=== PATIENT | female | born 1980 | race Caucasian/White ===

== ENCOUNTER 2022-07-19 12:14 | Emergency (ER) | payer OTHER, SELFPAY ==
[2022-07-19 12:39] VITALS: BP 144/88; RESP 22; TEMP 36.6; O2SAT 97; BMI 38.4
--- NOTE | 2022-07-19 13:09 | CRLHL7_ITS ---
For Patients: As a result of the Century Cures Act, medical imaging exams and procedure reports are released immediately into your electronic medical record. You may view this report before your referring provider. If you have questions, please contact your health care provider. INDICATION: Abdominal pain. Hernia. COMPARISON: None. TECHNIQUE: CT abdomen and pelvis with IV contrast. 99 cc IV [id number]. FINDINGS: Linear basilar subsegmental atelectasis. The liver, gallbladder, spleen, pancreas and adrenal glands are unremarkable. No obstructing renal calculus or hydronephrosis. Uterus is present. Bladder is unremarkable. Trace free pelvic fluid. Peripheral enhancing left adnexal cyst/corpus luteal cyst (series 2, image 121). Normal appendix. Ventral hernia with narrow neck containing prominent small bowel loop with adjacent fluid (series 2, image 80). No enlarged abdominal or pelvic lymph nodes. Abdominal aorta is normal in caliber. Grade 2 anterolisthesis of L5 on S1 with bilateral pars defects. IMPRESSION: Ventral hernia with narrow neck containing prominent small bowel loops with adjacent fluid suspicious for incarcerated hernia. Please note that all CT scans at this facility use dose modulation, iterative reconstruction, and/or weight-based dosing when appropriate to reduce radiation dose to as low as reasonably achievable. Dictated by Helio Cardenas MD @ 07/19/2022 2:32:37 PM (Electronically Signed)
--- NOTE | 2022-07-19 13:10 | ED.ABDPAIN ---
HPI - Abdominal Pain General Chief Complaint: Abdominal Pain Stated Complaint: Abdominal pain Time Seen by Provider: 07/19/22 12:57 History of Present Illness HPI narrative: This 42-year-old female comes in with abdominal pain located just above the umbilicus. She feels a bulge there typical of a hernia. She is unable to reduce the hernia. She has a remote history of abdominal surgery because of a large ovarian cyst. She does not report any fevers. She does have nausea but no vomiting. She did try to eat a couple crackers 2 hours prior to arrival and this did not sit well with her. Related Data Home Medications Medication Instructions Recorded Confirmed No Known Home Medications 07/19/22 07/19/22 Allergies Allergy/AdvReac Type Severity Reaction Status Date / Time Penicillins Allergy Verified 07/19/22 12:42 Review of Systems Status of ROS Reports: 10 or more systems reviewed and unremarkable except as noted in History and below Narrative Constitutional: No fevers, no weight gain or loss. Eyes: No discharge. No vision changes. HENT: No congestion, no sore throat, no ear pain. Cardiovascular: No chest pain, no palpitations. Respiratory: No shortness of breath, no wheezes, no cough. Gastrointestinal: No vomiting, no diarrhea. Severe abdominal pain with herniation just above the umbilicus. Genitourinary: No dysuria, no hematuria. Musculoskeletal: Normal range of motion. Skin: No rashes, no pruritis. Neurological: No dizziness, weakness, sensory change, speech change. Endo/Heme/Allergies: No bruising or bleeding. No polydipsia. Pysch: no suicidality, no anxiety, no insomnia. All other systems reviewed and are negative. [facility] Social History Smoking Status: Current every day smoker What tobacco products do you use: cigarettes Smoking packs per day: 0.5 Smoking cigarettes per day: 10.0 Do you use any of these nicotine containing products: None Second hand tobacco smoke exposure: No How often do you have a drink containing alcohol: 2-3 times a week How many standard drinks containing alcohol do you have on a typical day: 3 or 4 How often do you have six or more drinks on one occasion: Never AUDIT-C Alcohol total score: 4 Non-prescribed substance use: denies use Exam Narrative: Exam Narrative: Constitutional: Well-developed, well-nourished, no acute distress. HEENT: Normocephalic, atraumatic. Neck: Normal range of motion. Nontender. Supple. Heart: Regular. No murmurs. Normal rate. Intact distal pulses. Lungs: Clear to auscultation. No chest discomfort. No wheezes, rhonchi, or rales. Abdomen: Normal bowel sounds. No rebound tenderness. Herniation just above the umbilicus which is approximately 5-6 cm in diameter. Genitalia: Deferred. Back: No midline tenderness. Normal range of motion. Extremities: Normal range of motion. No injury. Skin: Intact. No rash. Warm. No erythema or pallor. Neurologic: No altered sensation. No weakness. Alert and oriented. Psychiatric: No suicidality. No anxiety or depression. No insomnia. Nursing notes and vitals signs are reviewed. Const: Vital Signs, click to edit/add: Vital Signs - 24 hr 07/19/22 12:39 Temperature 97.9 F Respiratory Rate 22 Blood Pressure [Le ft Upper Arm] 144/88 H Pulse Oximetry 97 Oxygen Delivery Me thod Room Air Course Vital Signs Vital signs: Initial Vital Signs Temperature 97.9 F 07/19/22 12:39 Temperature Source Temporal Artery Scan 07/19/22 12:39 Respiratory Rate 22 07/19/22 12:39 Blood Pressure 144/88 H 07/19/22 12:39 Blood Pressure Mean 106 07/19/22 12:39 Blood Pressure Position Standing 07/19/22 12:39 Pulse Oximetry 97 07/19/22 12:39 Oxygen Delivery Method 07/19/22 12:39 Vital Signs Temperature 97.9 F 07/19/22 12:39 Respiratory Rate 22 07/19/22 12:39 Blood Pressure 144/88 H 07/19/22 12:39 Pulse Oximetry 97 07/19/22 12:39 Oxygen Delivery Method 07/19/22 12:39 Temperature 97.9 F 07/19/22 12:39 Respiratory Rate 22 07/19/22 12:39 Blood Pressure 144/88 H 07/19/22 12:39 Pulse Oximetry 97 07/19/22 12:39 Oxygen Delivery Method 07/19/22 12:39 MDM - Abdominal Pain MDM Narrative Medical decision making narrative: This patient comes in with severe abdominal pain due to an incarcerated hernia. An IV was established where she received Dilaudid 0.5 mg. I encouraged her to attempt to manipulate the herniation and reduce it. A CT scan of the abdomen and pelvis does show evidence of an incarcerated hernia with a small loop of bowel in the herniation. Upon revisiting the patient she states that she was able to reduce the hernia and feels no pain currently. I did connect with the surgeon on-call, Dr. Thomas, regarding this matter. The patient will follow-up in surgery clinic for more definitive management of this condition. She understands that if symptoms recur she can come back to the emergency department. Lab Data Labs: Lab Results 07/19/22 07/19/22 Range/Units 13:27 13:27 WBC 7.75 (4.50-11.00) K/uL RBC 4.87 (4.00-5.20) m/uL Hgb 15.0 (12.0-16.0) gm/dL Hct 45.0 (33.0-51.0) % MCV 92 (80-100) fL MCH 31 (26-34) pg MCHC 33 (32-36) gm/dL RDW Coeff of Yesy 12.5 (11.5-15.5) % Plt Count 206 (140-440) K/uL Neut % (Auto) 81.0 H (42.0-72.0) % Lymph % (Auto) 12.5 L (20-44) % Conway % (Auto) 5.3 (0.0-11.0) % Eos % (Auto) 0.8 (0.0-7.0) % Baso % (Auto) 0.1 (0.0-3.0) % Neut # (Auto) 6.30 (1.7-7.0) K/uL Lymph # (Auto) 1.00 (0.90-2.90) K/uL Conway # (Auto) 0.40 (0.00-0.90) K/UL Eos # (Auto) 0.06 (0.00-0.50) K/uL Baso # (Auto) 0.01 (0.00-0.30) K/uL Sodium 136 (135-149) mmol/L Potassium 5.2 H (3.6-5.1) mmol/L Chloride 110 (96-114) mmol/L Carbon Dioxide 19 L (20-32) mmol/L BUN 8 (5-24) mg/dL Creatinine 0.7 (0.5-1.5) mg/dL Estimated Creat Clear 83.65 Estimated GFR 111 ml/min Glucose 116 H (60-115) mg/dL Calcium 8.7 (8.4-10.6) mg/dL Imaging Data CT scan - abdomen: Radiologist's impression: Ventral hernia with narrow neck containing prominent small bowel loops with adjacent fluid suspicious for incarcerated hernia. Discharge Plan Discharge Clinical Impression: Incarcerated hernia Patient Disposition: Home, Self-Care Condition: Improved Additional Instructions: Follow-up with surgery Clinic for further management of the abdominal hernia. Return if symptoms recur. Call [phone] to arrange appointment. Prescriptions: No Action No Known Home Medications Follow Up/Referrals: Sue Ortiz MD [Primary Care Provider] - Stand Alone Forms: [employer] Info Instructions
[2022-07-19] MEDS: ONDANSETRON 2 MG/ML inj 4 MG IVP (13:30)
[2022-07-19] MEDS: HYDROmorphone 0.5 mg/0.5 ml inj IVP (13:30)
[2022-07-19 13:38] LABS: Basophils Absolute Auto 0.01 K/uL (0.00-0.30); Basophils Percent Auto 0.1 % (0.0-3.0); Eosinophils Absolute Auto 0.06 K/uL (0.00-0.50); Eosinophils Percent Auto 0.8 % (0.0-7.0); Immature Granulocytes Abs Auto 0.02 K/uL (0.00-0.30); Immature Granulocytes Pct Auto 0.3 %; Lymphocytes Percent Auto 12.5 % (20-44); Mean Corpuscular HGB Conc 33 gm/dL (32-36); Mean Corpuscular Hemoglobin 31 pg (26-34); Mean Corpuscular Volume 92 fL (80-100); Monocytes Percent Auto 5.3 % (0.0-11.0); Platelet Count* 206 K/uL (140-440); RDW Coefficient of Variation % 12.5 % (11.5-15.5); Red Blood Count 4.87 m/uL (4.00-5.20); Slide Review Reflex No; White Blood Count* 7.75 K/uL (4.50-11.00)
[2022-07-19 13:56] LABS: Chloride* 110 mmol/L (96-114); Sodium* 136 mmol/L (135-149)
[2022-07-19 13:57] LABS: Potassium* 5.2 mmol/L (3.6-5.1)
[2022-07-19 13:59] LABS: Creatinine* 0.7 mg/dL (0.5-1.5); Est. Creatinine Clearance* 83.65; Estimated Glomerular Filt Rate 111 ml/min
[2022-07-19 14:00] LABS: Blood Urea Nitrogen* 8 mg/dL (5-24); Calcium* 8.7 mg/dL (8.4-10.6); Glucose* 116 mg/dL (60-115)
[2022-07-19 14:22] LABS: Carbon Dioxide* 19 mmol/L (20-32)
[2022-07-19 15:15] VITALS: BP 132/78; PULSE 79; RESP 22; O2SAT 97
[2022-07-19 15:24] VITALS: BP 132/78; PULSE 79; RESP 22; TEMP 36.6
== END 2022-07-19 15:15 | disposition home or self-care (01) ==
PROVIDERS: Emergency Provider Emergency Medicine Emergency Medical Services; PCP Obstetrics & Gynecology
DX: K43.9 Ventral hernia without obstruction or gangrene (principal)
CPT/HCPCS: 36415; 74177; 80048; 85025; 96374; 96375; 99284; 99285; J1170; J2405; Q9967

== ENCOUNTER 2022-08-17 06:09 | Day surgery (SDC) | payer OTHER, SELFPAY ==
[2022-08-17] VITALS (15 sets, daily range): BP systolic 84–128; BP diastolic 60–105; PULSE 50–85; RESP 16; TEMP 36.5–37.1; O2SAT 93–99; BMI 38.0
[2022-08-17] MEDS: LACTATED RINGERS 1000 ML 1,000 ML 100 ML IV ×3 (06:10→10:05)
[2022-08-17 06:38] LABS: HCG Qualitative* Negative (Negative)
[2022-08-17] MEDS: SCOPOLAMINE 1 MG/3 DAY PATCH 1 PATCH TRANSDERMA (06:40)
[2022-08-17] MEDS: SODIUM CHLORIDE 0.9 % (FLUSH) 10 ML SYRINGE IVF (06:42)
--- NOTE | 2022-08-17 06:49 | W.ANESCHARGE ---
Anesthesia Charges Start Date/Time Anesthesia Start Date: 08/17/22 Anesthesia Start Time: 07:35 Stop Date/Time Anesthesia Stop Date: 08/17/22 Anesthesia Stop Time: 09:39 Summary Emergency: No
[2022-08-17] MEDS: CLINDAMYCIN 900 MG/50 ML-D5W IVPB (07:40)
--- NOTE | 2022-08-17 07:56 | P.NB_ITS ---
Nerve Block Nerve Block Time Seen by Provider: 07:42 Date Seen: 08/17/22 Type of block requested by surgeon for post-operative analgesia: TAP Side: bilateral Time out performed: Yes Verification of patient name: Yes Verification of date of : Yes Site marking: site marked Name of person performing procedure: Eloy Continuous monitoring Was continuous monitoring of O2 sat, B/P, cardiac care nurse, recorded every 15 minutes?: Yes Procedure Checklist: sterile prep, needles and gloves Ultrasound guided. Images saved: Yes Medications given in 5ml increments after negative aspiration: Marcaine %: 0.25 mL: 30 Needle gauge: 20 and Exparel mL: 10 Patient tolerated procedure well: Yes Additional comments: Needle noted adjacent to nerve Block Charges Block Charge (with Pro Fee): TAP Bilateral Use of Ultrasound Machine for Block: Yes- US Guidance/pain block
[2022-08-17] MEDS: BUPIVACAINE 0.25% 30 ML INJECTION (09:20)
--- NOTE | 2022-08-17 09:35 | PM.GSPRC ---
Operative Note Date of procedure: 08/18/22 Pre-op diagnosis: Ventral hernia Post-op diagnosis: Same Type of Procedure: Laparoscopic ventral hernia repair with placement of mesh Indications: Patient is a 42-year-old female who presented to the emergency department last month with incarcerated small bowel within a ventral hernia. This was able to be reduced and patient was seen in follow-up. Different treatment options were discussed with the patient, with recommendations to proceed with operative intervention. Risks and benefits of operative intervention were discussed at length with the patient. Risks included but was not limited to: Bleeding, infection, risk of damage to surrounding structures, possible need for additional procedures, possible need to convert to an open operation and postoperative complications such as pneumonia, pulmonary emboli or CT. All questions and concerns were addressed with the patient agreeing to proceed. Procedure Description: After discussing the risks and benefits of the procedure, the patient signed informed consent.? The operative site was marked and the patient was brought to the operating room and placed on the operating table in supine position.? Care was taken to pad the patient's pressure points.?? The patient was then intubated by anesthesia.?? The operative site was then prepped and draped in the usual sterile fashion.? A time-out was then performed. A 5 mm Visiport was used to enter the abdomen in the left upper quadrant. The abdomen was insufflated and briefly surveyed, with no evidence of injury. The ventral hernia was identified superior to the umbilicus within the midline. An additional 5 mm port was placed in the right lower quadrant and left lower quadrant. A 12 mm port was placed just lateral to the umbilicus. Using hook cautery the preperitoneal space around the hernia defect was created. The defect measured approximately 4 cm x 2 cm in size. There was some incarcerated preperitoneal fat which was able to be reduced along with the hernia sac. Once the hernia defect was circumferentially dissected out and the sac completely reduced an intra-abdominal Ventralight ST mesh measuring 10 x 15 cm was chosen for coverage. 2-0 PDS suture and 0 Vicryl suture was placed at 4 points around the mesh, to tack the mesh in place intra-abdominally and serve as trans fascial secures. The mesh was then placed in the abdomen and the abdominal pressure decreased to 12 mmHg. A gavino in the skin was made with an 11 blade directly over the hernia defect. Using the Rad-Tasha I was then able to grasp the mesh positioning system, to ensure appropriate placement of the mesh. I then continued to use the Rad-Tasha to grasp each 4 point suture and secured the mesh transfascially. There was appropriate overlap of at least 2 cm circumferentially around the hernia defect. The positioning system was then removed completely from the abdomen. The mesh was partially tucked into the preperitoneal space. And intra-abdominal Tacker was then used to circumferentially create a ring around the outer edges of the mesh. The redundant preperitoneal fat and hernia sac was then used to partially cover the mesh, there was a small amount of mesh that was still exposed, but care was ensured that this was the Hydrogel barrier side in order to minimize any adhesion formation. The abdomen was then completely desufflated and all ports removed under direct visualization. The 12 mm port was closed with a figure of eight 0 Vicryl stitch. The port sites were closed with 4-0 Monocryl suture. Steri-Strips are placed over the laparoscopic port sites. All other small incisions were closed with dermabond. ? The patient was then woken and transported to the recovery area in stable condition. ? The patient tolerated the procedure well. Findings: Ventral hernia defect, repaired laparoscopically with mesh. Anesthesia: GETA Surgeon: Yessica Walls MD Estimated blood loss (mL): 5 Condition: stable Disposition: same day
--- NOTE | 2022-08-17 09:37 | W.ANESCHARGE ---
Anesthesia Charges Start Date/Time Anesthesia Start Date: 08/17/22 Anesthesia Start Time: 07:35 Stop Date/Time Anesthesia Stop Date: 08/17/22 Anesthesia Stop Time: 09:39 Summary Emergency: No
[2022-08-17] MEDS: fentaNYL 100 MCG/2 ML inj 50 MCG IVP ×2 (09:50→10:02)
--- NOTE | 2022-08-17 10:16 | SUR.PHASEI ---
abdominal binder placed per Dr. Walls abd placed over incision sites sites look good no drinage
--- NOTE | 2022-08-17 10:19 | SUR.PHASEI ---
Dr. Walls into aee pt ordered abdominal binder to be worn for 2 weeks
== END 2022-08-17 11:53 | disposition home or self-care (01) ==
PROVIDERS: Anesthesiology; PCP Obstetrics & Gynecology; Visit Provider Surgery
PROC: 0WQF4ZZ Repair Abdominal Wall, Percutaneous Endoscopic Approach (ICD-10-PCS; CPT 49594; principal; 2022-08-17 07:30)
DX: K43.6 Other and unspecified ventral hernia with obstruction, without gangrene (principal)
CPT/HCPCS: 49594; 00752; 00790; 64488; 76942; 84703; A9270; C1781; C9290; J1100; J1885; J2405; J2704; J2710; J3010; J3490; J7120; S0077

== ENCOUNTER 2023-02-02 12:48 | Outpatient (CLI) | payer OTHER, SELFPAY | END 2023-02-02 12:49 | disposition home or self-care (01) | LOC: NFLDREF 02-03 07:51 | PROVIDERS: PCP Physician Assistant Medical; Referring Provider Physician Assistant Medical; Visit Provider Physician Assistant | DX: R30.0 Dysuria (principal); N39.0 Urinary tract infection, site not specified | CPT/HCPCS: 87086; 87186 ==

== ENCOUNTER 2023-02-17 14:41 | Outpatient (CLI) | payer OTHER, SELFPAY | END 2023-02-17 14:42 | disposition home or self-care (01) | PROVIDERS: PCP Physician Assistant Medical; Visit Provider Family Medicine | DX: Z00.00 Encounter for general adult medical examination without abnormal findings (principal); R19.7 Diarrhea, unspecified; R30.0 Dysuria; R53.83 Other fatigue; Z11.59 Encounter for screening for other viral diseases; R63.1 Polydipsia; Z13.6 Encounter for screening for cardiovascular disorders; Z76.89 Persons encountering health services in other specified circumstances | CPT/HCPCS: 80053; 80061; 82306; 84443; 86803; 87086; 87186 ==

== ENCOUNTER 2023-04-08 18:54 | Emergency (ER) | payer OTHER, SELFPAY ==
[2023-04-08 19:11] VITALS: BP 115/75; PULSE 83; RESP 20; TEMP 36.6; O2SAT 99; BMI 27.5
[2023-04-08 19:49] LABS: PCR FLU A Negative PCR FLU A (Negative); PCR FLU B Negative PCR FLU B (Negative); PCR RSV Negative PCR RSV (Negative)
[2023-04-08 19:53] LABS: SARS PCR* Negative SARS-CoV-2 (Negative)
--- NOTE | 2023-04-08 20:15 | ED.SOB ---
HPI - SOB/Dyspnea General Chief Complaint: Shortness of Breath/Dyspnea Stated Complaint: short of breath Time Seen by Provider: 04/08/23 19:58 History of Present Illness HPI Narrative: Patient is a 42-year-old woman with history of asthma who presents with persistent shortness of breath over the last several weeks. Negative D-dimer chest x-ray and full workup which was unremarkable. She has been treated with 2 rounds of antibiotics with limited success. She has had no fevers no chills no night sweats no significant cough she does have wheezing as well as difficulty with shortness of breath. She is using an albuterol inhaler on a p.r.n. basis several times per day. Related Data Previous Rx's Medication Instructions Recorded albuterol sulfate 90 mcg/actuation 2 puff inhalation Q4-6H PRN 03/31/23 aerosol inhaler shortness of breath or wheezing #8.5 grams Allergies Allergy/AdvReac Type Severity Reaction Status Date / Time Penicillins Allergy Mild Hives, Verified 02/17/23 14:16 Bloating clindamycin AdvReac Intermediate Diarrhea Verified 04/08/23 19:01 Eggs or Egg-derived products AdvReac Mild Uncoded 02/17/23 14:16 Review of Systems Status of ROS: Reports: 10 or more systems reviewed and unremarkable except as noted in History and below [facility] Medical History Ventral hernia without obstruction or gangrene ?K43.9 - Ventral hernia without obstruction or gangrene (ICD-10) Uterine fibroid ?D25.9 - Leiomyoma of uterus, unspecified (ICD-10) 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) Cystic fibrosis carrier ?Z14.1 - Cystic fibrosis carrier (ICD-10) Asthma ?J45.909 - Unspecified asthma, uncomplicated (ICD-10) Surgical History History of oophorectomy, unilateral ?Z90.721 - Acquired absence of ovaries, unilateral (ICD-10) History of ventral hernia repair ?Z98.890 - Other specified postprocedural states (ICD-10) ?Z87.19 - Personal history of other diseases of the digestive system (ICD-10) Family History Family/Other Anxiety disorder Lung cancer Maternal Grandmother Breast cancer Grandmother Diabetes Social History Narrative: - Ed Smoking Status: Former smoker What tobacco products do you use: cigarettes Smoking quit date/years: <= 15 years ago Do you use any of these nicotine containing products: None Second hand tobacco smoke exposure: No How often do you have a drink containing alcohol: never How many standard drinks containing alcohol do you have on a typical day: 3 or 4 How often do you have six or more drinks on one occasion: Never AUDIT-C Alcohol total score: 1 Non-prescribed substance use: denies use Caffeine: Yes Little interest or pleasure in doing things: several days Feeling down, depressed, or hopeless: several days Are you using contraception or practicing any form of control: No Exam Narrative: Exam Narrative: EXAM GENERAL: Patient appears comfortable and well. EYES: No scleral icterus. ENT: Tympanic membranes and oropharynx normal. THYROID: no thyroid nodules or thyromegaly. LYMPH: No supraclavicular or cervical lymphadenopathy. SKIN: Visible skin seen during exam normal or with benign process only. EXT: No dependent lower extremity pedal edema. HEART: Regular rate and rhythm with no murmurs, rubs, or gallops. LUNGS: Mild expiratory wheezes heard bilaterally. ABD: Soft, non tender, non distended. PSYCH: Good eye contact, speech is not pressured. Const: Vital Signs, click to edit/add: Vital Signs - 24 hr 04/08/23 19:11 Temperature 97.9 F Pulse Rate [Right Pulse Oximeter] 83 Respiratory Rate 20 Blood Pressure [Ri ght Upper Arm] 115/75 Pulse Oximetry 99 Oxygen Delivery Me thod Room Air Course Course ED Course: Patient seen examined. Vital Signs Vital signs: Initial Vital Signs Temperature 97.9 F 04/08/23 19:11 Temperature Source Temporal Artery Scan 04/08/23 19:11 Pulse Rate 83 04/08/23 19:11 Pulse Rhythm Regular 04/08/23 19:11 Respiratory Rate 20 04/08/23 19:11 Blood Pressure 115/75 04/08/23 19:11 Blood Pressure Mean 88 04/08/23 19:11 Blood Pressure Position Sitting 04/08/23 19:11 Pulse Oximetry 99 04/08/23 19:11 Oxygen Delivery Method Room Air 04/08/23 19:11 Vital Signs Temperature 97.9 F 04/08/23 19:11 Pulse Rate 83 04/08/23 19:11 Respiratory Rate 20 04/08/23 19:11 Blood Pressure 115/75 04/08/23 19:11 Pulse Oximetry 99 04/08/23 19:11 Oxygen Delivery Method Room Air 04/08/23 19:11 Temperature 97.9 F 04/08/23 19:11 Pulse Rate 83 04/08/23 19:11 Respiratory Rate 20 04/08/23 19:11 Blood Pressure 115/75 04/08/23 19:11 Pulse Oximetry 99 04/08/23 19:11 Oxygen Delivery Method Room Air 04/08/23 19:11 MDM - SOB/Dyspnea MDM Narrative Medical decision making narrative: Patient is a 42-year-old woman who tested negative for respiratory viruses and has had recent negative chest x-ray negative D-dimer and full workup presents with shortness of breath with expiratory wheezing. Patient has been treated with rounds of antibiotics but no improvement she is using her inhaler. I do think that the most reasonable addition to be short course of prednisone. I would also recommend close outpatient follow-up. Differential Diagnosis Differential diagnosis: Likely acute exacerbation of chronic obstructive airways disease, congestive heart failure, community acquired pneumonia, asthma with exacerbation and pulmonary embolism Lab Data Labs: Lab Results 04/08/23 Range/Units 19:05 SARS-CoV-2 (PCR) Negative SARS-CoV-2 (Negative) Influenza Type A (PCR) Negative PCR FLU A (Negative) Influenza Type B (PCR) Negative PCR FLU B (Negative) RSV (PCR) Negative PCR RSV (Negative) Discharge Plan Discharge Clinical Impression: Asthma Patient Disposition: Home, Self-Care Condition: Stable Instructions: Asthma (ED) Additional Instructions: Continue albuterol Prednisone 20 mg twice daily for the next 5 days. Follow-up with your doctor this coming week. Activity Level: No Restrictions Discharge Diet: Regular Prescriptions: No Action albuterol sulfate 90 mcg/actuation HFA aerosol inhaler 2 puff inhalation Q4-6H PRN (Reason: shortness of breath or wheezing) Qty: 8.5 0RF Follow Up/Referrals: Theresa Zelaya MD [Primary Care Provider] - Stand Alone Forms: [employer] Info Instructions
== END 2023-04-08 20:43 | disposition home or self-care (01) ==
LOC: ED 20:42
PROVIDERS: Emergency Provider Internal Medicine; PCP Family Medicine
DX: Z20.822 Contact with and (suspected) exposure to COVID-19 (principal); J45.909 Unspecified asthma, uncomplicated
CPT/HCPCS: 87631; 99282; 99283

== ENCOUNTER 2023-04-20 12:24 | Emergency (ER) | payer OTHER, SELFPAY ==
[2023-04-20 12:33] VITALS: BP 125/81; PULSE 66; RESP 18; O2SAT 99; BMI 38.4
[2023-04-20 13:54] VITALS: BP 120/78; O2SAT 98
--- NOTE | 2023-04-20 14:07 | CRLHL7_ITS ---
For Patients: As a result of the Century Cures Act, medical imaging exams and procedure reports are released immediately into your electronic medical record. You may view this report before your referring provider. If you have questions, please contact your health care provider. INDICATION: Short of breath COMPARISON: 03/31/2023 TECHNIQUE: PA and lateral 2 view chest radiograph. FINDINGS: The lungs are well expanded. No focal consolidations. No pulmonary edema. No pleural effusion. No pneumothorax. No pneumomediastinum. Normal cardiomediastinal silhouette. Bones: Normal for age. IMPRESSION: Lungs are clear. Normal chest radiograph. Dictated by Aleyda Aponte MD @ 04/20/2023 3:57:38 PM (Electronically Signed)
--- NOTE | 2023-04-20 14:09 | ED.SOB ---
HPI - SOB/Dyspnea General Chief Complaint: Shortness of Breath/Dyspnea Stated Complaint: Short of breath Time Seen by Provider: 04/20/23 13:46 History of Present Illness HPI Narrative: This 42-year-old female comes in reporting shortness of breath that is been present for more than the past month or 2. She has been seen in the past and had workups that were negative. She did receive a Medrol Dosepak when she was seen about 3 weeks ago. She states that she felt much better when she was on this medicine but her symptoms returned since discontinuing it. She does have a remote history of asthma when she was in her teenage years. She does not report any unilateral leg or arm swelling or pain. She does report some chest discomfort that she describes as tightness when exerting herself. She does not report any nausea or vomiting, lightheadedness, or diaphoresis. Related Data Previous Rx's Medication Instructions Recorded albuterol sulfate 90 mcg/actuation 2 puff inhalation Q4-6H PRN 03/31/23 aerosol inhaler shortness of breath or wheezing #8.5 grams fluticasone 100 mcg-salmeterol 50 1 inh inhalation BID #60 ea 04/20/23 mcg/dose blistr powdr for inhalation (Advair Diskus) methylprednisolone 4 mg tablets in See Rx Instructions PO .COMPLEX 04/20/23 a dose pack (Medrol (Joshua)) #21 ea Allergies Allergy/AdvReac Type Severity Reaction Status Date / Time Penicillins Allergy Mild Hives, Verified 04/20/23 12:33 Bloating clindamycin AdvReac Intermediate Diarrhea Verified 04/20/23 12:33 egg AdvReac Verified 04/20/23 12:33 Review of Systems Status of ROS: Reports: 10 or more systems reviewed and unremarkable except as noted in History and below Narrative: Constitutional: No fevers, no weight gain or loss. Eyes: No discharge. No vision changes. HENT: No congestion, no sore throat, no ear pain. Cardiovascular: No chest pain, no palpitations. Respiratory: No wheezes, no cough. Shortness of breath as described above. Gastrointestinal: No abdominal pain, no vomiting, no diarrhea. Genitourinary: No dysuria, no hematuria. Musculoskeletal: Normal range of motion. Skin: No rashes, no pruritis. Neurological: No dizziness, weakness, sensory change, speech change. Endo/Heme/Allergies: No bruising or bleeding. No polydipsia. Pysch: no suicidality, no anxiety, no insomnia. All other systems reviewed and are negative. 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) Cystic fibrosis carrier ?Z14.1 - Cystic fibrosis carrier (ICD-10) Asthma ?J45.909 - Unspecified asthma, uncomplicated (ICD-10) Surgical History History of oophorectomy, unilateral ?Z90.721 - Acquired absence of ovaries, unilateral (ICD-10) History of ventral hernia repair ?Z98.890 - Other specified postprocedural states (ICD-10) ?Z87.19 - Personal history of other diseases of the digestive system (ICD-10) Family History Family/Other Anxiety disorder Lung cancer Maternal Grandmother Breast cancer Grandmother Diabetes Social History Narrative: - Ed Smoking Status: Former smoker What tobacco products do you use: cigarettes Smoking quit date/years: <= 15 years ago Do you use any of these nicotine containing products: None Second hand tobacco smoke exposure: No How often do you have a drink containing alcohol: never How many standard drinks containing alcohol do you have on a typical day: 3 or 4 How often do you have six or more drinks on one occasion: Never AUDIT-C Alcohol total score: 1 Non-prescribed substance use: denies use Caffeine: Yes Little interest or pleasure in doing things: several days Feeling down, depressed, or hopeless: several days Are you using contraception or practicing any form of control: No Exam Narrative: Exam Narrative: Constitutional: Well-developed, well-nourished, no acute distress. HEENT: Normocephalic, atraumatic. Neck: Normal range of motion. Nontender. Supple. Heart: Regular. No murmurs. Normal rate. Intact distal pulses. Lungs: Clear to auscultation. No chest discomfort. No wheezes, rhonchi, or rales. Abdomen: Normal bowel sounds. Nontender. No rebound tenderness. Genitalia: Deferred. Back: No midline tenderness. Normal range of motion. Extremities: Normal range of motion. No injury. Skin: Intact. No rash. Warm. No erythema or pallor. Neurologic: No altered sensation. No weakness. Alert and oriented. Psychiatric: No suicidality. No anxiety or depression. No insomnia. Nursing notes and vitals signs are reviewed. Const: Vital Signs, click to edit/add: Vital Signs - 24 hr 04/20/23 12:33 04/20/23 13:54 Pulse Rate [Pulse Oximeter] 66 Respiratory Rate 18 Blood Pressure 120/78 Blood Pressure [Ri ght Upper Arm] 125/81 Pulse Oximetry 99 98 Oxygen Delivery Me thod Room Air Course Vital Signs Vital signs: Initial Vital Signs Temperature Source Temporal Artery Scan 04/20/23 12:33 Pulse Rate 66 04/20/23 12:33 Respiratory Rate 18 04/20/23 12:33 Blood Pressure 125/81 04/20/23 12:33 Blood Pressure Mean 95 04/20/23 12:33 Blood Pressure Position Sitting 04/20/23 12:33 Pulse Oximetry 99 04/20/23 12:33 Oxygen Delivery Method Room Air 04/20/23 12:33 Vital Signs Pulse Rate 66 04/20/23 12:33 Respiratory Rate 18 04/20/23 12:33 Blood Pressure 125/81 04/20/23 12:33 Pulse Oximetry 99 04/20/23 12:33 Oxygen Delivery Method Room Air 04/20/23 12:33 Pulse Rate 66 04/20/23 12:33 Respiratory Rate 18 04/20/23 12:33 Blood Pressure 120/78 04/20/23 13:54 Pulse Oximetry 98 04/20/23 13:54 Oxygen Delivery Method Room Air 04/20/23 12:33 MDM - SOB/Dyspnea MDM Narrative Medical decision making narrative: This patient comes in reporting feeling of shortness of breath when exerting herself. When at rest she feels normal. She has been having symptoms like this over the past couple months. She does not report any fever or cough. She did take a steroid for 5 days and during this time she felt great. She also was prescribed an inhaler which she used without a spacer and it seemed to cause some irritation in her throat. A chest x-ray was done today and compared with images from 3 weeks ago. By my review there is no acute pulmonary disease on x-ray. Radiology report is pending. Additionally lab results are reassuring with negative troponin and D-dimer studies. Her white count is also in normal range. Most likely this patient is experiencing reactive airway symptoms typical of asthma or COPD. She did receive prescription for Advair and is instructed to use this daily. I did also provided a prescription for Medrol Dosepak. And I gave her instructions regarding proper use of her inhaler with a spacer. I advised the patient to follow-up with her primary physician or return if worsening symptoms happen. Lab Data Labs: Lab Results 04/20/23 Range/Units 14:20 WBC 6.56 (4.50-11.00) K/uL RBC 4.73 (4.00-5.20) m/uL Hgb 14.2 (12.0-16.0) gm/dL Hct 42.6 (33.0-51.0) % MCV 90 (80-100) fL MCH 30 (26-34) pg MCHC 33 (32-36) gm/dL RDW Coeff of Yesy 12.7 (11.5-15.5) % Plt Count 212 (140-440) K/uL Neut % (Auto) 58.6 (42.0-72.0) % Lymph % (Auto) 30.8 (20-44) % Dorado % (Auto) 8.5 (0.0-11.0) % Eos % (Auto) 1.8 (0.0-7.0) % Baso % (Auto) 0.3 (0.0-3.0) % Neut # (Auto) 3.84 (1.7-7.0) K/uL Lymph # (Auto) 2.02 (0.90-2.90) K/uL [place] # (Auto) 0.60 (0.00-0.90) K/UL Eos # (Auto) 0.12 (0.00-0.50) K/uL Baso # (Auto) 0.02 (0.00-0.30) K/uL Abs Immat Gran (auto) 0.00 (0.00-0.30) K/uL Imm/Tot Granulo (auto) 0.0 % D-Dimer Quant (PE/DVT) 0.42 (0.00-0.50) ug/ml Sodium 138 (135-149) mmol/L Potassium 4.3 (3.6-5.1) mmol/L Chloride 107 (96-114) mmol/L Carbon Dioxide 26 (20-32) mmol/L Anion Gap 5 L (7-15) mEq/L BUN 8 (5-24) mg/dL Creatinine 0.7 (0.5-1.5) mg/dL Estimated Creat Clear 83.65 Estimated GFR 111 ml/min Glucose 87 (60-115) mg/dL Calcium 9.9 (8.4-10.6) mg/dL SARS-CoV-2 (PCR) Negative SARS-CoV-2 (Negative) Influenza Type A (PCR) Negative PCR FLU A (Negative) Influenza Type B (PCR) Negative PCR FLU B (Negative) POC Troponin I 0.00 L (0.01-0.04) ng/ml ECG Data Attestation: I personally reviewed and interpreted this ECG as follows: Interpretation: Normal sinus rhythm. Rate is 61 beats per minute. There are no ST or T-wave abnormalities. Discharge Plan Discharge Clinical Impression: Reactive airway disease Patient Disposition: Home, Self-Care Condition: Stable Additional Instructions: Take medications as prescribed. Use Ventolin inhaler as needed and directed. Follow up with primary physician and consider pulmonary function testing. Return if worsening symptoms occur. Prescriptions: New methylprednisolone [Medrol (Joshua)] 4 mg tablets,dose pack See Rx Instructions .ROUTE .COMPLEX Qty: 21 0RF Rx Instructions: orally per package directions fluticasone propion-salmeterol [Advair Diskus] 100-50 mcg/dose blister with device 1 inh inhalation BID Qty: 60 2RF No Action albuterol sulfate 90 mcg/actuation HFA aerosol inhaler 2 puff inhalation Q4-6H PRN (Reason: shortness of breath or wheezing) Qty: 8.5 0RF Hold Instructions: Haven't been using lately Follow Up/Referrals: Theresa Zelaya MD [Primary Care Provider] - Stand Alone Forms: MyHealth Info Instructions
[2023-04-20 14:29] LABS: Basophils Absolute Auto 0.02 K/uL (0.00-0.30); Basophils Percent Auto 0.3 % (0.0-3.0); Eosinophils Absolute Auto 0.12 K/uL (0.00-0.50); Eosinophils Percent Auto 1.8 % (0.0-7.0); Hematocrit 42.6 % (33.0-51.0); Hemoglobin* 14.2 gm/dL (12.0-16.0); Lymphocytes Absolute Auto 2.02 K/uL (0.90-2.90); Lymphocytes Percent Auto 30.8 % (20-44); Mean Corpuscular HGB Conc 33 gm/dL (32-36); Mean Corpuscular Hemoglobin 30 pg (26-34); Mean Corpuscular Volume 90 fL (80-100); Monocytes Percent Auto 8.5 % (0.0-11.0); Neutrophils Absolute Auto 3.84 K/uL (1.7-7.0); Neutrophils Percent Auto 58.6 % (42.0-72.0); Platelet Count* 212 K/uL (140-440); RDW Coefficient of Variation % 12.7 % (11.5-15.5); Red Blood Count 4.73 m/uL (4.00-5.20); White Blood Count* 6.56 K/uL (4.50-11.00)
[2023-04-20 14:35] LABS: Slide Review Reflex No
[2023-04-20 14:42] LABS: Chloride* 107 mmol/L (96-114); Potassium* 4.3 mmol/L (3.6-5.1); Sodium* 138 mmol/L (135-149)
[2023-04-20 14:44] LABS: Creatinine* 0.7 mg/dL (0.5-1.5); Est. Creatinine Clearance* 83.65; Estimated Glomerular Filt Rate 111 ml/min
[2023-04-20 14:45] LABS: Anion Gap 5 mEq/L (7-15); Blood Urea Nitrogen* 8 mg/dL (5-24); Calcium* 9.9 mg/dL (8.4-10.6); Carbon Dioxide* 26 mmol/L (20-32); Glucose* 87 mg/dL (60-115)
[2023-04-20 14:48] LABS: D Dimer Quantitative* 0.42 ug/ml (0.00-0.50)
[2023-04-20 15:06] LABS: PCR FLU A Negative PCR FLU A (Negative); PCR FLU B Negative PCR FLU B (Negative)
[2023-04-20 15:08] LABS: SARS PCR* Negative SARS-CoV-2 (Negative)
[2023-04-20 15:55] VITALS: BP 131/88; PULSE 65; RESP 16; O2SAT 98
== END 2023-04-20 16:05 | disposition home or self-care (01) ==
PROVIDERS: Emergency Provider Emergency Medicine Emergency Medical Services; PCP Family Medicine
DX: J45.909 Unspecified asthma, uncomplicated (principal)
CPT/HCPCS: 36415; 71046; 80048; 84484; 85025; 85379; 87631; 93005; 99284

== ENCOUNTER 2023-04-26 11:21 | Outpatient (CLI) | payer OTHER, SELFPAY | END 2023-04-26 11:22 | disposition home or self-care (01) | LOC: LKVREF 11:21 | PROVIDERS: PCP Family Medicine; Visit Provider Otolaryngology | DX: R53.83 Other fatigue (principal); R13.10 Dysphagia, unspecified | CPT/HCPCS: 84443 ==

== ENCOUNTER 2023-04-27 07:57 | Outpatient (CLI) | payer OTHER, SELFPAY ==
--- NOTE | 2023-04-27 08:15 | CRLHL7_ITS ---
For Patients: As a result of the Century Cures Act, medical imaging exams and procedure reports are released immediately into your electronic medical record. You may view this report before your referring provider. If you have questions, please contact your health care provider. Indication: Paresthesias. Technique: Multiplanar, multisequence MRI of the brain was performed without intravenous contrast. Comparison: None relevant available. Findings: The corpus callosum, pituitary gland and clivus appear intact. Craniocervical junction is preserved. There is no restricted diffusion. No intracranial hemorrhage. The ventricles are proportionate to the cerebral sulci. The 4th ventricle appears midline. The basal cisterns appear patent. No abnormal extra-axial fluid collection identified. There is no intracranial mass, abnormal mass-effect or midline shift identified. Major intracranial vascular flow voids appear grossly intact. Both globes are preserved. Impression: Unremarkable MRI of the brain. Dictated by Jose Luis Cavazos MD @ 04/27/2023 12:16:18 PM (Electronically Signed)
--- NOTE | 2023-04-27 09:00 | CRLHL7_ITS ---
For Patients: As a result of the Century Cures Act, medical imaging exams and procedure reports are released immediately into your electronic medical record. You may view this report before your referring provider. If you have questions, please contact your health care provider. Indication: Sinusitis, deviated septum Technique: Noncontrast CT of the paranasal sinuses. Coronal and sagittal reformats. Bone and soft tissue algorithms. Comparison: No relevant comparison studies available at this institution. Findings: Frontal sinuses: The frontal sinuses and frontal recesses are clear. Ethmoid air cells: The ethmoid air cells are clear. Symmetric depths of the olfactory fossa. The anterior ethmoidal arteries appear covered by bone. Sphenoid sinuses: The sphenoid sinuses and sphenoethmoidal recesses are clear. No optic canal or carotid canal dehiscence. Maxillary sinuses: The maxillary sinuses are clear. The osteomeatal units are clear. Nasal cavity: Smooth, 2 mm leftward nasal septal deviation.. No ghada bullosa. No paradoxical turbinates. Other Structures: Lucent/lytic appearing changes are noted at the posterior right mandibular body/alveolar ridge, with marked thinning of the lingual cortex, and healed fracture of the buccal cortex. Residual periapical lucency at the treated right maxillary central incisor, status post root canal. Dental caries, left lateral maxillary incisor. Clear mastoid air cells. Unremarkable orbits. Imaged intracranial structures are unremarkable for technique. No suspicious findings in the regional soft tissues. IMPRESSION: 1. Clears sinonasal cavities. Smooth 2 mm leftward nasal septal deviation. 2. Incompletely visualized lucent/lytic changes at the posterior right mandibular body/alveolar ridge, with marked osseous thinning along the lingual cortex, and healed fracture at the buccal cortex. It is unclear if this is chronic postsurgical or sequela of osteomyelitis. Clinical correlation advised. 3. Small residual periapical lucency at the right maxillary central incisor status post root canal therapy. Left lateral maxillary incisor dental caries. Please note that all CT scans at this facility use dose modulation, iterative reconstruction, and/or weight-based dosing when appropriate to reduce radiation dose to as low as reasonably achievable. Dictated by Jessie Munoz MD @ 04/27/2023 11:48:23 AM (Electronically Signed)
--- NOTE | 2023-04-27 09:00 | CRLHL7_ITS ---
For Patients: As a result of the Century Cures Act, medical imaging exams and procedure reports are released immediately into your electronic medical record. You may view this report before your referring provider. If you have questions, please contact your health care provider. INDICATION: Dyspnea with exertion TECHNIQUE: CT chest was acquired with IV contrast. 95 mL Isovue 370 COMPARISON: None FINDINGS: Cardiovascular structures: Heart size is normal. Thoracic aorta and main pulmonary artery are normal in caliber. Mediastinum and phylicia: No mass or adenopathy. Lungs: Right middle lobe and lingular atelectasis. Ground-glass basilar probable atelectasis. Lung volumes appear low. No focal consolidation. Some minimal mosaic attenuation which could be seen most commonly with small airways disease. Pleura and pericardium: No effusions. Chest wall and axilla: No mass or adenopathy. Bones: No significant findings. Upper abdomen: Unremarkable. IMPRESSION: 1. Low lung volumes. Minimal mosaic attenuation most commonly seen with small airways disease. Please note that all CT scans at this facility use dose modulation, iterative reconstruction, and/or weight-based dosing when appropriate to reduce radiation dose to as low as reasonably achievable. Dictated by Salud Ocasio MD @ 04/28/2023 9:01:03 PM (Electronically Signed)
== END 2023-04-27 07:58 | disposition home or self-care (01) ==
LOC: MRI 07:58
PROVIDERS: PCP Family Medicine; Visit Provider Family Medicine
DX: R06.09 Other forms of dyspnea (principal); G51.8 Other disorders of facial nerve; J45.909 Unspecified asthma, uncomplicated; R53.83 Other fatigue
CPT/HCPCS: 70486; 70551; 71275; Q9967

== ENCOUNTER 2023-05-13 08:04 | Outpatient (CLI) | payer OTHER, SELFPAY ==
--- NOTE | 2023-05-13 08:15 | CRLHL7_ITS ---
For Patients: As a result of the Cures Act, medical imaging exams and procedure reports are released immediately into your electronic medical record. You may view this report before your referring provider. If you have questions, please contact your health care provider. INDICATION: Dysphagia COMPARISON: CT chest 04/27/2023 TECHNIQUE: Morrison scale and color Doppler images were acquired of the thyroid gland. FINDINGS: Cystic nodule right thyroid lobe measures 1.0 x 0.4 x 0.6 cm. Additional cystic nodule right thyroid lobe measures 9 x 6 x 11 millimeters. Cystic nodule lower pole left thyroid lobe measures 8 x 5 x 7 millimeters. Additional cystic nodule lower pole left thyroid lobe measures 9 x 6 x 6 millimeters. The right lobe measures 6.1 x 1.7 x 2.4 cm and the left lobe measures 5.7 x 1.8 x 1.9 cm in size. The isthmus measures 3 millimeters. The color Doppler images demonstrate normal vascularity. There is no evidence of cervical lymphadenopathy or parathyroid mass. IMPRESSION: Bilateral primarily cystic thyroid nodules measuring up to 1.1 cm. No further follow-up indicated. Dictated by Helio Wells MD @ 05/17/2023 5:31:17 AM (Electronically Signed)
== END 2023-05-13 08:05 | disposition home or self-care (01) ==
LOC: US 08:04
PROVIDERS: PCP Family Medicine; Visit Provider Family Medicine
DX: R13.10 Dysphagia, unspecified (principal); R06.09 Other forms of dyspnea; E04.1 Nontoxic single thyroid nodule
CPT/HCPCS: 76536; 93306

== ENCOUNTER 2023-05-23 14:15 | Outpatient (RCR) | payer OTHER, SELFPAY | END 2023-08-22 15:56 | disposition home or self-care (01) | PROVIDERS: PCP Family Medicine; Visit Provider Family Medicine | DX: N39.46 Mixed incontinence (principal); Z51.89 Encounter for other specified aftercare | CPT/HCPCS: 97110; 97140; 97162 ==

== ENCOUNTER 2023-06-08 15:40 | Outpatient (CLI) | payer OTHER, SELFPAY | END 2023-06-08 15:41 | disposition home or self-care (01) | LOC: LKVREF 15:42 | PROVIDERS: PCP Family Medicine; Visit Provider Otolaryngology | DX: R23.3 Spontaneous ecchymoses (principal); R53.83 Other fatigue | CPT/HCPCS: 85730 ==

== ENCOUNTER 2023-11-24 20:35 | Emergency (ER) | payer OTHER, SELFPAY ==
[2023-11-24] VITALS (16 sets, daily range): BP systolic 109–128; BP diastolic 67–86; PULSE 62–69; RESP 16–18; TEMP 36.7; O2SAT 95–99; BMI 39.3
--- NOTE | 2023-11-24 20:49 | ED_ITS ---
HPI - General Adult General Date Seen: 11/24/23 Chief complaint: Abdominal Pain Stated complaint: Abdominal discomfort Time Seen by Provider: 11/24/23 20:44 History of Present Illness HPI narrative: 43 yo F with h/o RAD, Migraine headache, ROmberg disease, anxiety/depression, presenting to ER for evaluation of upper abdominal pain radiating through to her back. She does have history of occasional GERD and did have a repair of a ventral or incisional periumbilical hernia last year. She has never had abdominal pain similar to this evening before. She was healthy and well this afternoon. She really did not eat supper. 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 She had been walking around home deep bone feeling fine and then after she got home around 7 she began to feel some epigastric pain. It felt like burning and possibly heartburn. It got steadily worse over couple of hours and then became severe and was 10/10. It radiated through to her mid back and also to the right side and also up into her chest. It felt like a burning like apparent but not a ripping or tearing sensation. It did not radiate up to her jaw or down her arm or down her leg. It made her nauseous. It gradually began to fade. Now it is still present but very mild. Bowel movements have been normal. No recent black or bloody stools. Urination has been normal. Related Data Previous Rx's Medication Instructions Recorded albuterol sulfate 90 mcg/actuation 2 puff inhalation Q4-6H PRN 03/31/23 aerosol inhaler shortness of breath or wheezing #8.5 grams Allergies Allergy/AdvReac Type Severity Reaction Status Date / Time Penicillins Allergy Mild Hives, Verified 06/24/23 14:57 Bloating clindamycin AdvReac Intermediate Diarrhea Verified 06/24/23 14:57 egg AdvReac Verified 06/24/23 14:57 [facility] Medical History (Updated 11/24/23 @ 22:46 by Jeffrey Hill MD) Murmur ?R01.1 - Cardiac murmur, unspecified (ICD-10) Uterine fibroid ?D25.9 - Leiomyoma of uterus, unspecified (ICD-10) 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) Cystic fibrosis carrier ?Z14.1 - Cystic fibrosis carrier (ICD-10) Asthma ?J45.909 - Unspecified asthma, uncomplicated (ICD-10) Surgical History History of oophorectomy, unilateral ?Z90.721 - Acquired absence of ovaries, unilateral (ICD-10) History of ventral hernia repair ?Z98.890 - Other specified postprocedural states (ICD-10) ?Z87.19 - Personal history of other diseases of the digestive system (ICD-10) Family History Family/Other Anxiety disorder Lung cancer Maternal Grandmother Breast cancer Grandmother Diabetes Social History (Updated 05/23/23 @ 11:32 by Татьяна Ahmadi ~ [facility]) Narrative: - Ed What is your current living situation?: I presently have a place to live Problems where you live: no known problems In the past 12 months, utilities in danger of being shut off: no In the past 12 mos, have been you worried that your food would run out before you had money to buy more?: never true In the past 12 mos, the food you bought just didn't last and you didn't have money to buy more?: never true Smoking Status: Former smoker What tobacco products do you use: cigarettes Smoking quit date/years: <= 15 years ago Do you use any of these nicotine containing products: None Second hand tobacco smoke exposure: No How often do you have a drink containing alcohol: never How many standard drinks containing alcohol do you have on a typical day: 3 or 4 How often do you have six or more drinks on one occasion: Never AUDIT-C Alcohol total score: 1 Non-prescribed substance use: denies use Caffeine: Yes How often does anyone, including family, friends and others, physically hurt you : never How often does anyone, including family, friends and others, insult or talk down to you: never How often does anyone, including family, friends and others, threaten you with harm: never How often does anyone, including family, friends and others, scream or curse at you: never Little interest or pleasure in doing things: not at all Feeling down, depressed, or hopeless: not at all Are you using contraception or practicing any form of control: No Exam Narrative: Exam Narrative: Constitutional: Appears well-developed and well-nourished. Alert. Conversant. Non toxic. HENT: Head: Atraumatic. Nose: Nose normal. Mouth/Throat: Oral mucosa is clear and moist. no trismus. Pharynx normal. Eyes: Conjunctivae normal. EOM normal. Pupils equal, round, and reactive to ligh t. No scleral icterus. Neck: Normal range of motion. Neck supple. No tracheal deviation present. Cardiovascular: Normal rate, regular rhythm. No gallop. No friction rub. No murmur heard. Symmetric radial and PT artery pulses Pulmonary/Chest: Effort normal. No stridor. No respiratory distress. No wheezes. No rales. No rhonchi . No tenderness. Abdominal: Soft. Bowel sounds normal. No distension. No mass. Epigastric and periziphoid > RUQ tenderness. No left upper quadrant tenderness. No lower tenderness. No CVA tenderness. No pulsatile mass. No rebound. No guarding. Musculoskeletal: RUE: Normal range of motion. No tenderness. No deformity LUE: Normal range of motion. No tenderness. No deformity RLE: Normal range of motion. No edema. No tenderness. No deformity LLE: Normal range of motion. No edema. No tenderness. No deformity Neurological: Alert and oriented to person, place, and time. Normal strength. CN II-VII intact. No sensory deficit. GCS eye subscore is 4. GCS verbal subscore is 5. GCS motor subscore is 6. Normal coordination Skin: Skin is warm and dry. No rash noted. No pallor. Normal capillary refill. Psychiatric: Normal mood. Normal affect. Const: Vital Signs, click to edit/add: Vital Signs - 24 hr 11/24/23 20:40 11/24/23 20:46 11/24/23 21:00 Temperature 98.0 F Pulse Rate 65 68 Pulse Rate [Pulse Oximeter] 65 Respiratory Rate 18 Blood Pressure Blood Pressure [Ri ght Upper Arm] 128/79 Pulse Oximetry 96 96 99 Oxygen Delivery Me thod Room Air 11/24/23 21:02 11/24/23 21:15 11/24/23 21:21 Temperature Pulse Rate 64 63 68 Pulse Rate [Pulse Oximeter] Respiratory Rate Blood Pressure 124/73 121/86 Blood Pressure [Ri t Upper Arm] Pulse Oximetry 96 97 97 Oxygen Delivery Me thod 11/24/23 21:30 11/24/23 21:41 11/24/23 21:58 Temperature Pulse Rate 69 62 69 Pulse Rate [Pulse Oximeter] Respiratory Rate Blood Pressure 109/73 Blood Pressure [Ri ght Upper Arm] Pulse Oximetry 96 95 97 Oxygen Delivery Me thod 11/24/23 22:00 11/24/23 22:01 11/24/23 22:15 Temperature Pulse Rate 63 64 69 Pulse Rate [Pulse Oximeter] Respiratory Rate Blood Pressure 112/73 Blood Pressure [Ri ght Upper Arm] Pulse Oximetry 96 96 96 Oxygen Delivery Me thod 11/24/23 22:21 11/24/23 22:30 11/24/23 22:51 Temperature 98.0 F Pulse Rate 63 68 Pulse Rate [Pulse Oximeter] 69 Respiratory Rate 16 16 Blood Pressure 113/67 Blood Pressure [Ri ght Upper Arm] 121/74 Pulse Oximetry 96 96 96 Oxygen Delivery Me thod Room Air 11/24/23 22:52 Temperature 98.0 F Pulse Rate Pulse Rate [Pulse Oximeter] 69 Respiratory Rate 16 Blood Pressure Blood Pressure [Ri ght Upper Arm] 121/74 Pulse Oximetry Oxygen Delivery Me thod Course Course ED Course: Recheck-says she is feeling quite a bit better. Repeat exam reveals no tenderness at this time. Vital Signs Vital signs: Initial Vital Signs Temperature 98.0 F 11/24/23 20:40 Temperature Source Temporal Artery Scan 11/24/23 20:40 Pulse Rate 65 11/24/23 20:40 Respiratory Rate 18 11/24/23 20:40 Blood Pressure 128/79 11/24/23 20:40 Blood Pressure Mean 95 11/24/23 20:40 Blood Pressure Position Sitting 11/24/23 20:40 Pulse Oximetry 96 11/24/23 20:40 Oxygen Delivery Method Room Air 11/24/23 20:40 Vital Signs Temperature 98.0 F 11/24/23 20:40 Pulse Rate 65 11/24/23 20:40 Respiratory Rate 18 11/24/23 20:40 Blood Pressure 128/79 11/24/23 20:40 Pulse Oximetry 96 11/24/23 20:40 Oxygen Delivery Method Room Air 11/24/23 20:40 Temperature 98.0 F 11/24/23 22:52 Pulse Rate 69 11/24/23 22:52 Respiratory Rate 16 11/24/23 22:52 Blood Pressure 121/74 11/24/23 22:52 Pulse Oximetry 96 11/24/23 22:51 Oxygen Delivery Method Room Air 11/24/23 22:51 Medical Decision Making MDM Narrative Medical decision making narrative: This is a very pleasant 43-year-old female accompanied to the ER tonight by her for evaluation of abdominal pain affecting her epigastrium and radiating up into her chest, through to her back and also affecting her right upper quadrant of her abdomen. Predominance or pain was in the epigastric. Differential is broad. Consider any up to couple presentation of ACS. Screening EKG and troponin are negative. He differential would also include gastritis, peptic ulcer disease. No evidence for any GI bleeding. No peritoneal findings suggest perforated ulcer. Consider also be biliary colic, cholecystitis, choledocholithiasis, hepatitis, pancreatitis. Laboratory workup is reassuring. She is not having any flank pain to suggest UTI or kidney stone. No lower abdominal pain to suggest appendicitis. At this point she has only had pain for couple of hours so early appendicitis cannot be definitively ruled out, but she is not febrile, has a normal white count, and pain actually resolved here in the ER. With her pain being predominantly epigastric but also in the right upper quadrant I suspect this probably was biliary colic. Pain resolved without treatment here in the ER. Discuss gallstones, biliary colic, and potential oral for recurrence with the patient and her . At this point no indication for emergent surgical intervention. Precautions for return to the ER reviewed. Discussed avoiding high fat foods. She will also follow-up with her primary for outpatient evaluation. She may consider a semi elective cholecystectomy if she has recurrent bursts of colic. She will return to the ER right away with any worsening symptoms or other concerns. Lab Data Labs: Lab Results 11/24/23 Range/Units 21:24 WBC 6.80 (4.50-11.00) K/uL RBC 4.43 (4.00-5.20) m/uL Hgb 13.1 (12.0-16.0) gm/dL Hct 40.6 (33.0-51.0) % MCV 92 (80-100) fL MCH 30 (26-34) pg MCHC 32 (32-36) gm/dL RDW Coeff of Yesy 12.3 (11.5-15.5) % Plt Count 224 (140-440) K/uL Neut % (Auto) 60.0 (42.0-72.0) % Lymph % (Auto) 28.4 (20-44) % [place] % (Auto) 8.5 (0.0-11.0) % Eos % (Auto) 2.8 (0.0-7.0) % Baso % (Auto) 0.3 (0.0-3.0) % Neut # (Auto) 4.08 (1.7-7.0) K/uL Lymph # (Auto) 1.93 (0.90-2.90) K/uL [place] # (Auto) 0.60 (0.00-0.90) K/UL Eos # (Auto) 0.19 (0.00-0.50) K/uL Baso # (Auto) 0.02 (0.00-0.30) K/uL Abs Immat Gran (auto) 0.00 (0.00-0.30) K/uL Imm/Tot Granulo (auto) 0.0 % Sodium 138 (135-149) mmol/L Potassium 4.2 (3.6-5.1) mmol/L Chloride 106 (96-114) mmol/L Carbon Dioxide 29 (20-32) mmol/L Anion Gap 3 L (7-15) mEq/L BUN 14 (5-24) mg/dL Creatinine 0.7 (0.5-1.5) mg/dL Estimated Creat Clear 82.80 Estimated GFR 111 ml/min Glucose 105 (60-115) mg/dL Calcium 8.9 (8.4-10.6) mg/dL Total Bilirubin 0.2 (0.1-1.5) mg/dL AST 43 H (12-35) U/L ALT 34 (4-35) U/L Alkaline Phosphatase 99 (40-150) U/L Troponin I < 0.01 L (0.01-0.04) ng/mL Total Protein 6.7 (6.0-8.3) g/dL Albumin 4.0 (3.3-5.0) g/dL Lipase 119 (23-300) U/L Imaging Data US RUQ: Attestation: I have reviewed the pertinent imaging results. Radiologist's impression: FINDINGS: Liver: Focal area of fatty infiltration adjacent to the gallbladder fossa. No discrete masses. No intrahepatic biliary ductal dilatation. Gallbladder: Stones and sludge noted. Vascular echogenic focus measuring 0.7 cm along the gallbladder wall, consistent with a polyp. Normal wall thickness. No pericholecystic fluid. Negative sonographic Mathew`s sign. Common bile duct: 4 mm. Pancreas: Visualized portions are unremarkable. Right kidney: Normal in size. Normal echotexture and cortex. No suspicious masses, stones, or hydronephrosis. Vasculature: Proximal abdominal aorta and IVC are unremarkable. IMPRESSION: 1. Cholelithiasis without evidence of cholecystitis. 2. 0.7 cm gallbladder wall polyp. Discharge Plan Discharge Clinical Impression: Gallstones, Biliary colic Patient Disposition: Home, Self-Care Condition: Stable Instructions: Biliary Colic (ED), Gallstones (ED) Additional Instructions: Light as we discussed, please come back to the ER right away if you have any problems especially another episode of severe pain, pain lasting more than 2-3 hours, fever or chills, jaundice, uncontrolled nausea vomiting, chest pain or trouble breathing, or have any other problems. Prescriptions: No Action albuterol sulfate 90 mcg/actuation HFA aerosol inhaler 2 puff inhalation Q4-6H PRN (Reason: shortness of breath or wheezing) Qty: 8.5 0RF Hold Instructions: Haven't been using lately Follow Up/Referrals: Theresa eZlaya MD [Primary Care Provider] - Stand Alone Forms: [employer] Info Instructions
--- NOTE | 2023-11-24 21:05 | US_ITS ---
Patient: BUFFY MONSIVAIS Facility:?[facility] Patient ID:?[id number] Site Patient ID:?[id number] Site :?1980 Study:?US-Abdomen RUQ-11/24/2023 10:07:24 PM Ordering Physician:ISA MENDEZ Final Report: INDICATION: Right upper quadrant abdominal pain. TECHNIQUE: Ultrasound abdomen limited. Sonographic images of the right upper quadrant were obtained using rodrigez-scale and color Doppler images. COMPARISON: CT abdomen and pelvis 12/23/2022 FINDINGS: Liver: Focal area of fatty infiltration adjacent to the gallbladder fossa. No discrete masses. No intrahepatic biliary ductal dilatation. Gallbladder: Stones and sludge noted. Vascular echogenic focus measuring 0.7 cm along the gallbladder wall, consistent with a polyp. Normal wall thickness. No pericholecystic fluid. Negative sonographic Mathew`s sign. Common bile duct: 4 mm. Pancreas: Visualized portions are unremarkable. Right kidney: Normal in size. Normal echotexture and cortex. No suspicious masses, stones, or hydronephrosis. Vasculature: Proximal abdominal aorta and IVC are unremarkable. IMPRESSION: 1. Cholelithiasis without evidence of cholecystitis. 2. 0.7 cm gallbladder wall polyp. Dictated by Dean Tejada MD @ 11/24/2023 10:25:14 PM Signed by:?Dean Tejada MD @11/24/2023 10:25:14 PM (Electronic Signature)
[2023-11-24 21:32] LABS: Basophils Absolute Auto 0.02 K/uL (0.00-0.30); Basophils Percent Auto 0.3 % (0.0-3.0); Eosinophils Absolute Auto 0.19 K/uL (0.00-0.50); Eosinophils Percent Auto 2.8 % (0.0-7.0); Hematocrit 40.6 % (33.0-51.0); Hemoglobin* 13.1 gm/dL (12.0-16.0); Lymphocytes Absolute Auto 1.93 K/uL (0.90-2.90); Lymphocytes Percent Auto 28.4 % (20-44); Mean Corpuscular HGB Conc 32 gm/dL (32-36); Mean Corpuscular Hemoglobin 30 pg (26-34); Mean Corpuscular Volume 92 fL (80-100); Monocytes Percent Auto 8.5 % (0.0-11.0); Neutrophils Absolute Auto 4.08 K/uL (1.7-7.0); Platelet Count* 224 K/uL (140-440); RDW Coefficient of Variation % 12.3 % (11.5-15.5); Red Blood Count 4.43 m/uL (4.00-5.20)
[2023-11-24 21:34] LABS: Slide Review Reflex No
[2023-11-24 21:44] LABS: Chloride* 106 mmol/L (96-114)
[2023-11-24 21:45] LABS: Potassium* 4.2 mmol/L (3.6-5.1); Sodium* 138 mmol/L (135-149)
[2023-11-24 21:47] LABS: Alkaline Phosphatase* 99 U/L (40-150); Anion Gap 3 mEq/L (7-15); Aspartate Amino Transferase* 43 U/L (12-35); Bilirubin Total* 0.2 mg/dL (0.1-1.5); Carbon Dioxide* 29 mmol/L (20-32); Creatinine* 0.7 mg/dL (0.5-1.5); Estimated Glomerular Filt Rate 111 ml/min; Total Protein* 6.7 g/dL (6.0-8.3)
[2023-11-24 21:48] LABS: Alanine Aminotransferase* 34 U/L (4-35); Blood Urea Nitrogen* 14 mg/dL (5-24); Calcium* 8.9 mg/dL (8.4-10.6); Glucose* 105 mg/dL (60-115); Lipase* 119 U/L (23-300)
[2023-11-24 22:08] LABS: Troponin I* < 0.01 ng/mL (0.01-0.04)
== END 2023-11-24 22:52 | disposition home or self-care (01) ==
PROVIDERS: Emergency Provider Emergency Medicine; PCP Family Medicine
DX: K80.20 Calculus of gallbladder without cholecystitis without obstruction (principal); K80.50 Calculus of bile duct without cholangitis or cholecystitis without obstruction
CPT/HCPCS: 36415; 76705; 80053; 83690; 84484; 85025; 93005; 99284

== ENCOUNTER 2023-12-09 15:01 | Outpatient (CLI) | payer OTHER, SELFPAY ==
--- NOTE | 2023-12-09 15:20 | MM_ITS ---
Patient: BUFFY MONSIVAIS Facility:?[facility] Patient ID:?[id number] Site Patient ID:?[id number]. Site :?1980 Study:?XRay-Breast Bilateral 3D W/CAD-12/09/2023 3:41:56 PM Ordering Physician:?Theresa Zelaya Final Report: BILATERAL SCREENING MAMMOGRAM WITH COMPUTER-AIDED DETECTION AND TOMOSYNTHESIS TECHNIQUE: CC and MLO views were obtained. These mammographic images have been obtained using full-field digital technique. These mammographic images were interpreted with the benefit of computer-aided detection. Breast Tomosynthesis was used in this interpretation. COMPARISON FILM: Baseline. FINDINGS: The breasts are heterogeneously dense, which may obscure small masses. IMPRESSION: There is no radiographic evidence for malignancy. ASSESSMENT: BI-RADS Category 2: Benign RECOMMENDATION: Routine screening mammogram in 1 year. A lay language report of this examination will be provided to the patient. Helio Wells M.D. Diagnostic Radiologist [email or web address] DSM/sp R& Transcribed: 6:44 p.m. SP/Dictated by: Helio Wells MD @ 12/12/2023 11:22:00 AM Signed by:?Helio Wells MD @12/12/2023 8:47:22 PM (Electronic Signature)
== END 2023-12-09 15:02 | disposition home or self-care (01) ==
LOC: MAMMO 15:01
PROVIDERS: PCP Family Medicine; Visit Provider Family Medicine
DX: Z12.31 Encounter for screening mammogram for malignant neoplasm of breast (principal); R92.2 Inconclusive mammogram
CPT/HCPCS: 77063; 77067

== ENCOUNTER 2024-10-30 12:42 | Outpatient (CLI) | payer OTHER, SELFPAY | END 2024-10-30 12:43 | disposition home or self-care (01) | PROVIDERS: PCP Family Medicine; Visit Provider Family Medicine | DX: Z13.228 Encounter for screening for other metabolic disorders (principal); Z13.6 Encounter for screening for cardiovascular disorders | CPT/HCPCS: 80053; 80061 ==

== ENCOUNTER 2024-11-14 13:19 | Outpatient (CLI) | payer OTHER, SELFPAY | END 2024-11-14 13:20 | disposition home or self-care (01) | LOC: NFLDREF 11-16 03:55 | PROVIDERS: PCP Family Medicine; Referring Provider Family Medicine; Visit Provider Obstetrics & Gynecology | DX: N39.46 Mixed incontinence (principal); Z87.440 Personal history of urinary (tract) infections | CPT/HCPCS: 87086 ==

== ENCOUNTER 2025-01-17 21:39 | Observation (INO) | payer OTHER, SELFPAY ==
[2025-01-17 21:46] VITALS: BP 128/82; PULSE 68; RESP 18; TEMP 36.9; O2SAT 99; BMI 39.3
--- NOTE | 2025-01-17 21:57 | CRLHL7_ITS ---
For Patients: As a result of the Century Cures Act, medical imaging exams and procedure reports are released immediately into your electronic medical record. You may view this report before your referring provider. If you have questions, please contact your health care provider. Indication: Right upper quadrant pain Technique: Limited abdominal ultrasound. Evaluation of the liver, gallbladder, common bile duct, pancreas, right kidney, and aorta/IVC. Grayscale and color Doppler imaging utilized. Comparison: None Findings: Liver: Unremarkable size and echotexture. Gallbladder: Multiple stones noted. Suspected polyps present measuring up to 8 millimeters. Mild irregularity of the gallbladder wall without spencer wall thickening. Technologist reports negative sonographic Mathew`s sign. Common bile duct: 4 mm. Pancreas: Partially obscured. Visualized portions are unremarkable. Right kidney: Unremarkable. Aorta/IVC: Unremarkable. Impression: No acute abnormality appreciated. A few scattered gallbladder polyps are noted measuring up to 8 millimeters. Follow-up ultrasound in 12 months recommended. Dictated by Pierre Rascon MD @ 01/18/2025 12:02:42 AM (Electronically Signed)
--- NOTE | 2025-01-17 21:59 | ED.ABDPAIN ---
HPI - Abdominal Pain General Chief Complaint: Abdominal Pain Stated Complaint: Abominal pain Time Seen by Provider: 01/17/25 21:53 History of Present Illness HPI narrative: Patient is a 44-year-old woman with known history of gallstones who presents with right upper quadrant pain with radiation through into her epigastrium and mid chest. She has no diaphoresis no nausea no vomiting no fevers no chills no change in her bowel or bladder. She states that her symptoms worsen when she eats. She home did have gallstones approximately year ago but no evidence of cholecystitis. Labs are normal in a patient has largely been asymptomatic until the last 2 weeks at which time her symptoms have worsened. No other significant symptoms noted. Related Data Home Medications ?Medication ?Instructions ?Recorded ?Confirmed No Known Home Medications 01/17/25 01/17/25 Allergies Allergy/AdvReac Type Severity Reaction Status Date / Time Penicillins Allergy Mild Hives, Verified 01/17/25 21:49 Bloating clindamycin AdvReac Intermediate Diarrhea Verified 01/17/25 21:49 egg AdvReac Verified 01/17/25 21:49 Review of Systems Status of ROS Reports: 10 or more systems reviewed and unremarkable except as noted in History and below [facility] Medical History History of vaginal delivery (03/30/18) Dizziness ?R42 - Dizziness and giddiness (ICD-10) Uterine fibroid ?D25.9 - Leiomyoma of uterus, unspecified (ICD-10) 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) Cystic fibrosis carrier ?Z14.1 - Cystic fibrosis carrier (ICD-10) Asthma ?J45.909 - Unspecified asthma, uncomplicated (ICD-10) Surgical History H/O oral surgery ?Z98.890 - Other specified postprocedural states (ICD-10) History of oophorectomy, unilateral ?Z90.721 - Acquired absence of ovaries, unilateral (ICD-10) History of ventral hernia repair (08/18/22) ?Z98.890 - Other specified postprocedural states (ICD-10) ?Z87.19 - Personal history of other diseases of the digestive system (ICD-10) Family History Family/Other Anxiety disorder Lung cancer Maternal Grandmother Breast cancer Grandmother Diabetes Mother High blood pressure Social History Narrative: - Ed What is your current living situation?: I presently have a place to live Problems where you live: no known problems In the past 12 months, utilities in danger of being shut off: no In past 12 months, lack of transportation kept you from medical appts, meetings, work, or getting things needed for daily living: no In the past 12 mos, have been you worried that your food would run out before you had money to buy more?: never true In the past 12 mos, the food you bought just didn't last and you didn't have money to buy more?: never true Smoking Status: Former smoker What tobacco products do you use: cigarettes Smoking quit date/years: <= 15 years ago Do you use any of these nicotine containing products: None Second hand tobacco smoke exposure: No How often do you have a drink containing alcohol: never How many standard drinks containing alcohol do you have on a typical day: 3 or 4 How often do you have six or more drinks on one occasion: Never AUDIT-C Alcohol total score: 1 Non-prescribed substance use: denies use Caffeine: Yes How often does anyone, including family, friends and others, physically hurt you: never How often does anyone, including family, friends and others, insult or talk down to you: never How often does anyone, including family, friends and others, threaten you with harm: never How often does anyone, including family, friends and others, scream or curse at you: never Are you using contraception or practicing any form of control: No Exam Narrative: Exam Narrative: EXAM GENERAL: Patient appears comfortable and well. EYES: No scleral icterus. ENT: Tympanic membranes and oropharynx normal. THYROID: no thyroid nodules or thyromegaly. LYMPH: No supraclavicular or cervical lymphadenopathy. SKIN: Visible skin seen during exam normal or with benign process only. EXT: No dependent lower extremity pedal edema. HEART: Regular rate and rhythm with no murmurs, rubs, or gallops. LUNGS: Clear to auscultation bilaterally with no crackles or wheezes. ABD: Soft, non tender, non distended with the exception of mild tenderness in the right upper quadrant. PSYCH: Good eye contact, speech is not pressured. Const: Vital Signs, click to edit/add: Vital Signs - 24 hr 01/17/25 21:46 Temperature 98.4 F Pulse Rate [Right Pulse Oximeter] 68 Respiratory Rate 18 Blood Pressure [Ri ght Upper Arm] 128/82 Pulse Oximetry 99 Oxygen Delivery Me thod Room Air Course Course ED Course: Ultrasound of the right upper quadrant CBC comprehensive metabolic panel lipase lactate troponin D-dimer EKG obtained. Vital Signs Vital signs: Initial Vital Signs Temperature 98.4 F 01/17/25 21:46 Temperature Source Temporal Artery Scan 01/17/25 21:46 Pulse Rate 68 01/17/25 21:46 Respiratory Rate 18 01/17/25 21:46 Blood Pressure 128/82 01/17/25 21:46 Blood Pressure Mean 97 01/17/25 21:46 Blood Pressure Position Sitting 01/17/25 21:46 Pulse Oximetry 99 01/17/25 21:46 Oxygen Delivery Method Room Air 01/17/25 21:46 Vital Signs Temperature 98.4 F 01/17/25 21:46 Pulse Rate 68 01/17/25 21:46 Respiratory Rate 18 01/17/25 21:46 Blood Pressure 128/82 01/17/25 21:46 Pulse Oximetry 99 01/17/25 21:46 Oxygen Delivery Method Room Air 01/17/25 21:46 Temperature 98.4 F 01/17/25 21:46 Pulse Rate 68 01/17/25 21:46 Respiratory Rate 18 01/17/25 21:46 Blood Pressure 128/82 01/17/25 21:46 Pulse Oximetry 99 01/17/25 21:46 Oxygen Delivery Method Room Air 01/17/25 21:46 MDM - Abdominal Pain MDM Narrative Medical decision making narrative: Patient presents with right upper quadrant pain. Did do an ultrasound which showed mild gallbladder wall thickening with a possible polyp as well as gallstones. She has normal liver function tests and normal white blood cell count normal lipase and lactic acid. Patient has positive tenderness to palpation of the right upper quadrant as well. Troponin D-dimer negative. Case discussed with General surgery they would like her been admitted to the hospitalist service NPO with likely surgery to fall tomorrow. Patient admitted to the hospitalist service. Lab Data Labs: Lab Results 01/17/25 Range/Units 21:57 WBC 7.03 (4.50-11.00) K/uL RBC 4.94 (4.00-5.20) m/uL Hgb 14.7 (12.0-16.0) gm/dL Hct 44.1 (33.0-51.0) % MCV 89 (80-100) fL MCH 30 (26-34) pg MCHC 33 (32-36) gm/dL RDW Coeff of Yesy 12.0 (11.5-15.5) % Plt Count 231 (140-440) K/uL Neut % (Auto) 61.5 (42.0-72.0) % Lymph % (Auto) 27.9 (20-44) % [place] % (Auto) 7.7 (0.0-11.0) % Eos % (Auto) 2.1 (0.0-7.0) % Baso % (Auto) 0.7 (0.0-3.0) % Neut # (Auto) 4.32 (1.7-7.0) K/uL Lymph # (Auto) 1.96 (0.90-2.90) K/uL [place] # (Auto) 0.50 (0.00-0.90) K/UL Eos # (Auto) 0.15 (0.00-0.50) K/uL Baso # (Auto) 0.05 (0.00-0.30) K/uL Abs Immat Gran (auto) 0.01 (0.00-0.30) K/uL Imm/Tot Granulo (auto) 0.1 % D-Dimer Quant (PE/DVT) < 0.27 (0.00-0.50) ug/ml Sodium 137 (135-149) mmol/L Potassium 3.7 (3.6-5.1) mmol/L Chloride 103 (96-114) mmol/L Carbon Dioxide 27 (20-32) mmol/L Anion Gap 7 (7-15) mEq/L BUN 12 (5-24) mg/dL Creatinine 0.8 (0.5-1.5) mg/dL Estimated Creat Clear 71.71 Estimated GFR 94 ml/min Glucose 122 H (60-115) mg/dL Lactate 0.8 (0.5-1.9) mmol/L Calcium 10.8 H (8.4-10.6) mg/dL Total Bilirubin 0.4 (0.1-1.5) mg/dL AST 25 (12-35) U/L ALT 19 (4-35) U/L Alkaline Phosphatase 95 (40-150) U/L Troponin I < 0.01 (0.01-0.04) ng/mL Total Protein 7.2 (6.0-8.3) g/dL Albumin 4.3 (3.3-5.0) g/dL Lipase 86 (23-300) U/L Discharge Plan Discharge Clinical Impression: Acute cholecystitis Patient Disposition: Admitted As Observation Condition: Stable Activity Level: Other Discharge Diet: Other
[2025-01-17 22:05] LABS: Lactate* 0.8 mmol/L (0.5-1.9)
[2025-01-17 22:08] LABS: Basophils Absolute Auto 0.05 K/uL (0.00-0.30); Basophils Percent Auto 0.7 % (0.0-3.0); Eosinophils Absolute Auto 0.15 K/uL (0.00-0.50); Eosinophils Percent Auto 2.1 % (0.0-7.0); Hematocrit 44.1 % (33.0-51.0); Hemoglobin* 14.7 gm/dL (12.0-16.0); Immature Granulocytes Abs Auto 0.01 K/uL (0.00-0.30); Immature Granulocytes Pct Auto 0.1 %; Lymphocytes Absolute Auto 1.96 K/uL (0.90-2.90); Lymphocytes Percent Auto 27.9 % (20-44); Mean Corpuscular HGB Conc 33 gm/dL (32-36); Mean Corpuscular Hemoglobin 30 pg (26-34); Mean Corpuscular Volume 89 fL (80-100); Monocytes Percent Auto 7.7 % (0.0-11.0); Neutrophils Absolute Auto 4.32 K/uL (1.7-7.0); Neutrophils Percent Auto 61.5 % (42.0-72.0); Platelet Count* 231 K/uL (140-440); Red Blood Count 4.94 m/uL (4.00-5.20); White Blood Count* 7.03 K/uL (4.50-11.00)
[2025-01-17 22:10] LABS: Slide Review Reflex No
[2025-01-17 22:21] LABS: Albumin* 4.3 g/dL (3.3-5.0); Chloride* 103 mmol/L (96-114); Potassium* 3.7 mmol/L (3.6-5.1); Sodium* 137 mmol/L (135-149)
[2025-01-17 22:23] LABS: Alanine Aminotransferase* 19 U/L (4-35); Aspartate Amino Transferase* 25 U/L (12-35); Blood Urea Nitrogen* 12 mg/dL (5-24); Creatinine* 0.8 mg/dL (0.5-1.5); Est. Creatinine Clearance* 71.71; Estimated Glomerular Filt Rate 94 ml/min
[2025-01-17 22:24] LABS: Alkaline Phosphatase* 95 U/L (40-150); Anion Gap 7 mEq/L (7-15); Bilirubin Total* 0.4 mg/dL (0.1-1.5); Calcium* 10.8 mg/dL (8.4-10.6); Carbon Dioxide* 27 mmol/L (20-32); Glucose* 122 mg/dL (60-115); Lipase* 86 U/L (23-300); Total Protein* 7.2 g/dL (6.0-8.3)
[2025-01-17 22:37] LABS: Troponin I* < 0.01 ng/mL (0.01-0.04)
[2025-01-17 23:13] LABS: D Dimer Quantitative* < 0.27 ug/ml (0.00-0.50)
[2025-01-17 23:45] VITALS: BP 124/78; PULSE 74; RESP 18; TEMP 36.9; O2SAT 99
[2025-01-18 00:35] VITALS: O2SAT 99
[2025-01-18 01:09] VITALS: BP 124/78; PULSE 74; RESP 18; TEMP 36.9
[2025-01-18 01:10] VITALS: BP 122/83; PULSE 54; RESP 16; TEMP 36.2; O2SAT 96; BMI 38.6
--- NOTE | 2025-01-18 01:12 | W.PM.TELEH&P ---
Telehealth- H&P: HPI History of Present Illness Date Seen: 01/18/25 Chief complaint: Abominal pain Narrative: Juana Lizama is seen as an Interactive Telehealth visit. Juana Lizama is a 44-year-old female with a past medical history significant for cholelithiasis who presented to the hospital with abdominal pain. When the patient presented to the hospital she was complaining of abdominal pain in the right upper quadrant area. Upon examination, her labs appear to be stable. She was afebrile. Normotensive. He did undergo abdominal ultrasound which showed multiple gallbladder stones possible polyp and some thickening of the gallbladder wall without spencer wall thickening. This case was discussed with surgery and he decided to remove the gallbladder as there appears to be symptomatic cholelithiasis possible cholecystitis. 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) Cystic fibrosis carrier ?Z14.1 - Cystic fibrosis carrier (ICD-10) Asthma ?J45.909 - Unspecified asthma, uncomplicated (ICD-10) Surgical History H/O oral surgery ?Z98.890 - Other specified postprocedural states (ICD-10) History of oophorectomy, unilateral ?Z90.721 - Acquired absence of ovaries, unilateral (ICD-10) History of ventral hernia repair (08/18/22) ?Z98.890 - Other specified postprocedural states (ICD-10) ?Z87.19 - Personal history of other diseases of the digestive system (ICD-10) Family History Family/Other Anxiety disorder Lung cancer Maternal Grandmother Breast cancer Grandmother Diabetes Mother High blood pressure Social History Narrative: - Ed What is your current living situation?: I presently have a place to live Problems where you live: no known problems In the past 12 months, utilities in danger of being shut off: no In past 12 months, lack of transportation kept you from medical appts, meetings, work, or getting things needed for daily living: no In the past 12 mos, have been you worried that your food would run out before you had money to buy more?: never true In the past 12 mos, the food you bought just didn't last and you didn't have money to buy more?: never true Smoking Status: Former smoker What tobacco products do you use: cigarettes Smoking quit date/years: <= 15 years ago Do you use any of these nicotine containing products: None Second hand tobacco smoke exposure: No How often do you have a drink containing alcohol: never How many standard drinks containing alcohol do you have on a typical day: 3 or 4 How often do you have six or more drinks on one occasion: Never AUDIT-C Alcohol total score: 1 Non-prescribed substance use: denies use Caffeine: Yes How often does anyone, including family, friends and others, physically hurt you: never How often does anyone, including family, friends and others, insult or talk down to you: never How often does anyone, including family, friends and others, threaten you with harm: never How often does anyone, including family, friends and others, scream or curse at you: never Are you using contraception or practicing any form of control: No Meds Home Medications and Allergies Home Medications ?Medication ?Instructions ?Recorded ?Confirmed ?Type No Known Home Medications 01/17/25 01/17/25 History Allergies Allergy/AdvReac Type Severity Reaction Status Date / Time Penicillins Allergy Mild Hives, Verified 01/17/25 21:49 Bloating clindamycin AdvReac Intermediate Diarrhea Verified 01/17/25 21:49 egg AdvReac Verified 01/17/25 21:49 Exam Narrative Exam Narrative: Physical Exam GENERAL: ?vital signs reviewed, well developed and nourished, in no distress HEENT: pupils are equal round and reactive to light, extraocular movements are grossly within normal limits and oral mucosa is moist. NECK: Supple without lymphadenopathy or thyromegaly according to nursing staff examination observation HEART: Regular rate and rhythm without any rubs, murmurs, or gallops. LUNGS: Clear to auscultation bilaterally with good air movement throughout ABDOMEN: abdomonal tenderness EXTREMITIES: Strength and sensation is observed to be grossly within normal limits in the upper and lower extremities.? No focal strength deficit is observed. SKIN:? Observed warm and dry with color normal Const Vital Signs, click to edit/add: Vital Signs - 24 hr 01/17/25 21:46 01/17/25 23:45 01/18/25 00:35 Temperature 98.4 F 98.4 F Pulse Rate [Right Pulse Oximeter] 68 74 Respiratory Rate 18 18 Blood Pressure [Right Upper Arm] 128/82 124/78 Pulse Oximetry 99 99 99 Oxygen Delivery Method Room Air Room Air 01/18/25 01:09 Temperature 98.4 F Pulse Rate [Right Pulse Oximeter] 74 Respiratory Rate 18 Blood Pressure [Right Upper Arm] 124/78 Pulse Oximetry Oxygen Delivery Method Hospitalist - H&P: Result Labs Labs: Short CBC 01/17/25 Range/Units 21:57 WBC 7.03 (4.50-11.00) K/uL Hgb 14.7 (12.0-16.0) gm/dL Hct 44.1 (33.0-51.0) % Plt Count 231 (140-440) K/uL BMP 01/17/25 21:57 Sodium 137 Potassium 3.7 Chloride 103 Carbon Dioxide 27 BUN 12 Creatinine 0.8 Glucose 122 H Calcium 10.8 H Cardiac Enzymes 01/17/25 Range/Units 21:57 Troponin I < 0.01 (0.01-0.04) ng/mL Liver Function 01/17/25 Range/Units 21:57 Total Bilirubin 0.4 (0.1-1.5) mg/dL AST 25 (12-35) U/L ALT 19 (4-35) U/L Alkaline Phosphatase 95 (40-150) U/L Albumin 4.3 (3.3-5.0) g/dL Assessment and Plan Assessment and plan (1) Acute cholecystitis: Status: Acute (2) Migraine with aura: Status: Acute (3) Anxiety and depression: Status: Acute Plan 44-year-old female with a past medical history significant for cholelithiasis who has been diagnosed with possible acute cholecystitis. This case has been discussed with surgery. They are planning for laparoscopic cholecystectomy in the morning. She will be NPO. Will keep IV fluids running. No indication for antibiotics at this time. When I examined this patient this patient had significant epigastric pain. Her pain was not right upper quadrant. Upon review of her labs and her ultrasound I was not very convinced that this is actually acute cholecystitis. Clinically it appears more to be like peptic ulcer disease. However it is hard to tell given her ultrasound shows cholelithiasis and gallbladder thickening. Therefore I will put her on IV Protonix every 12 hours. I will keep her n.p.o. and still anticipate potential surgery evaluation. I will defer to the surgeon based on their expertise. Telehealth Visit: Todays History and Physical is via interactive telehealth by Dr Luis Castellanos MD The Patient is located [facility], physician is located at [facility]. Nursing staff assisted in the patient's exam. The visit being done today meets criteria for a telehealth visit and the patient or patient's parent/guardian is aware the visit is a telehealth visit. Camera Start time 100 Camera End time 130 Telehealth: Statement Statement Telehealth Visit: Today's History and Physical is provided via interactive telehealth by Luis Castellanos MD.? Patient is located at [facility].? Provider is located at [facility].? Nursing staff assisted with the patient's exam. The visit being done today meets criteria for a telehealth visit and the patient or patient?s parent/guardian is aware the visit is a telehealth visit.
[2025-01-18] MEDS: PANTOPRAZOLE SODIUM 40 MG INJ IVP (02:13)
[2025-01-18] MEDS: 0.9 % SODIUM CHLORIDE 1000 ml 1,000 ML 125 ML IV ×2 (02:13→09:33)
[2025-01-18] MEDS: GI COCKTAIL (VISC LIDO/ANTACID) 30 ML PO (02:37)
[2025-01-18 06:09] LABS: Ur HCG Qualitative* Negative (Negative)
[2025-01-18] MEDS: ACETAMINOPHEN 325 MG TABLET 975 MG PO (06:34)
[2025-01-18 07:00] VITALS: PULSE 64; RESP 18; O2SAT 97
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
[2025-01-18 07:45] VITALS: BP 110/71; PULSE 64; RESP 18; TEMP 36.4; O2SAT 97
--- NOTE | 2025-01-18 09:35 | P.GSCN_ITS ---
History of Present Illness Consult details Date Seen: 01/18/25 Consult date: 01/18/25 Narrative: Patient presented to the emergency department last night with epigastric pain that radiated up to her chest at left shoulder. She has been having pain like this since December 28. She denies any pain on the right side. The pain is persistent, but does improve with Tylenol and Tums. It seems to be most helped by Tums. Certain foods do make it worse, in particular fatty foods. Patient does have a history of reflux. This pain is similar, but she does not feel the same a radiation up to her throat or bile taste in the back of her throat. She denies any associated nausea or vomiting. No fevers. She denies any use of NSAIDs or aspirin. Patient is a nonsmoker, no alcohol or caffeine use. Her surgical history is positive for a ventral hernia repair with placement of mesh and an ovarian cystectomy. 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) Cystic fibrosis carrier ?Z14.1 - Cystic fibrosis carrier (ICD-10) Asthma ?J45.909 - Unspecified asthma, uncomplicated (ICD-10) Surgical History H/O oral surgery ?Z98.890 - Other specified postprocedural states (ICD-10) History of oophorectomy, unilateral ?Z90.721 - Acquired absence of ovaries, unilateral (ICD-10) History of ventral hernia repair (08/18/22) ?Z98.890 - Other specified postprocedural states (ICD-10) ?Z87.19 - Personal history of other diseases of the digestive system (ICD-10) Family History Family/Other Anxiety disorder Lung cancer Maternal Grandmother Breast cancer Grandmother Diabetes Mother High blood pressure Social History Narrative: - Ed What is your current living situation?: I presently have a place to live Problems where you live: no known problems Problems where you live details: NA In the past 12 months, utilities in danger of being shut off: no In past 12 months, lack of transportation kept you from medical appts, meetings, work, or getting things needed for daily living: no In the past 12 mos, have been you worried that your food would run out before you had money to buy more?: never true In the past 12 mos, the food you bought just didn't last and you didn't have money to buy more?: never true Highest level of school completed/degree received: some college, no degree Smoking Status: Former smoker What tobacco products do you use: cigarettes Years smoked: 15 Smoking quit date/years: <= 15 years ago Do you use any of these nicotine containing products: None Second hand tobacco smoke exposure: No How often do you have a drink containing alcohol: never How many standard drinks containing alcohol do you have on a typical day: 3 or 4 How often do you have six or more drinks on one occasion: Never AUDIT-C Alcohol total score: 1 Non-prescribed substance use: denies use Caffeine: No How often does anyone, including family, friends and others, physically hurt you : never How often does anyone, including family, friends and others, insult or talk down to you: sometimes How often does anyone, including family, friends and others, threaten you with harm: never How often does anyone, including family, friends and others, scream or curse at you: sometimes Are you using contraception or practicing any form of control: No service: No Health Related Social Needs: Other personal risk factors, not elsewhere classified (Z91.89) Meds Home Medications and Allergies Home Medications ?Medication ?Instructions ?Recorded ?Confirmed ?Type No Known Home Medications 01/17/2512/24 History Allergies Allergy/AdvReac Type Severity Reaction Status Date / Time Penicillins Allergy Mild Hives, Verified 01/17/25 21:49 Bloating clindamycin AdvReac Intermediate Diarrhea Verified 01/17/25 21:49 egg AdvReac Verified 01/17/25 21:49 Exam Narrative: Exam Narrative: General: Alert and oriented, no acute distress Respiratory: Equal breath rise bilaterally, maintained on room air CV: Well perfused Abdomen: Obese abdomen, soft, nontender to palpation. No tenderness on the right side. Negative Mathew sign Const: Vital Signs, click to edit/add: Vital Signs - 24 hr 01/17/25 21:46 01/17/25 23:45 01/18/25 00:35 Temperature 98.4 F 98.4 F Pulse Rate [Left P ulse Oximeter] Pulse Rate [Right Pulse Oximeter] 68 74 Respiratory Rate 18 18 Blood Pressure [Ri ght Arm] Blood Pressure [Ri ght Upper Arm] 128/82 124/78 Pulse Oximetry 99 99 99 Oxygen Delivery Me thod Room Air Room Air 01/18/25 01:09 01/18/25 01:10 01/18/25 07:00 Temperature 98.4 F 97.1 F L Pulse Rate [Left P ulse Oximeter] 54 L Pulse Rate [Right Pulse Oximeter] 74 Respiratory Rate 18 16 Blood Pressure [Ri ght Arm] 122/83 Blood Pressure [Ri ght Upper Arm] 124/78 Pulse Oximetry 96 97 Oxygen Delivery Me thod Room Air 01/18/25 07:00 01/18/25 07:45 Temperature 97.6 F Pulse Rate [Left P ulse Oximeter] 64 64 Pulse Rate [Right Pulse Oximeter] Respiratory Rate 18 18 Blood Pressure [Ri ght Arm] 110/71 Blood Pressure [Ri ght Upper Arm] Pulse Oximetry 97 Oxygen Delivery Me thod Room Air Results Labs Labs: Abnormal lab results 01/17/25 Range/Units 21:57 Glucose 122 H (60-115) mg/dL Calcium 10.8 H (8.4-10.6) mg/dL Diabetes panel 01/17/25 Range/Units 21:57 Sodium 137 (135-149) mmol/L Potassium 3.7 (3.6-5.1) mmol/L Chloride 103 (96-114) mmol/L Carbon Dioxide 27 (20-32) mmol/L BUN 12 (5-24) mg/dL Creatinine 0.8 (0.5-1.5) mg/dL Glucose 122 H (60-115) mg/dL Calcium 10.8 H (8.4-10.6) mg/dL AST 25 (12-35) U/L ALT 19 (4-35) U/L Alkaline Phosphatase 95 (40-150) U/L Total Protein 7.2 (6.0-8.3) g/dL Albumin 4.3 (3.3-5.0) g/dL Calcium panel 01/17/25 Range/Units 21:57 Calcium 10.8 H (8.4-10.6) mg/dL Albumin 4.3 (3.3-5.0) g/dL Pituitary panel 01/17/25 Range/Units 21:57 Sodium 137 (135-149) mmol/L Potassium 3.7 (3.6-5.1) mmol/L Chloride 103 (96-114) mmol/L Carbon Dioxide 27 (20-32) mmol/L BUN 12 (5-24) mg/dL Creatinine 0.8 (0.5-1.5) mg/dL Glucose 122 H (60-115) mg/dL Calcium 10.8 H (8.4-10.6) mg/dL Adrenal panel 01/17/25 Range/Units 21:57 Sodium 137 (135-149) mmol/L Potassium 3.7 (3.6-5.1) mmol/L Chloride 103 (96-114) mmol/L Carbon Dioxide 27 (20-32) mmol/L BUN 12 (5-24) mg/dL Creatinine 0.8 (0.5-1.5) mg/dL Glucose 122 H (60-115) mg/dL Calcium 10.8 H (8.4-10.6) mg/dL Total Bilirubin 0.4 (0.1-1.5) mg/dL AST 25 (12-35) U/L ALT 19 (4-35) U/L Alkaline Phosphatase 95 (40-150) U/L Total Protein 7.2 (6.0-8.3) g/dL Albumin 4.3 (3.3-5.0) g/dL All other labs normal. Imaging Abdominal ultrasound report/results: report reviewed and image reviewed Progress Note:A&P Assessment and plan (1) Epigastric abdominal pain: Status: Acute Assessment and Plan: Patient is a 44-year-old female who presents with subacute epigastric abdominal pain radiating to the chest and left shoulder. Symptoms are suspicious for peptic ulcer disease versus biliary colic. On abdominal ultrasound she does have multiple stones noted and small polyps, but no gallbladder wall thickening or pericholecystic fluid. CBC and liver panel are within normal limits. Would recommend ruling out peptic ulcer disease before making the decision about whether to proceed to the OR for laparoscopic cholecystectomy. Patient to remain NPO and get an upper endoscopy this afternoon.
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
--- NOTE | 2025-01-18 10:38 | P.ANES_ITS ---
Anesthesia Charges Start Date/Time Anesthesia Start Date: 01/18/25 Anesthesia Start Time: 10:35 Stop Date/Time Anesthesia Stop Date: 01/18/25 Anesthesia Stop Time: 10:53 Coding CPT Codes CPT Codes: ANES UPR GI NDSC PX NOS - 83095 ([id number]) P2 - PATIENT W/MILD SYST DISEASE, QK - FLOOR INSTALLER 2-4 CNCRNT ANES PROC, QX - FRONT OF HOUSE MANAGER SVC W/ MD MED DIRECTION
--- NOTE | 2025-01-18 10:38 | W.ANESCHARGE ---
Anesthesia Charges Start Date/Time Anesthesia Start Date: 01/18/25 Anesthesia Start Time: 10:35 Stop Date/Time Anesthesia Stop Date: 01/18/25 Anesthesia Stop Time: 10:53 Coding CPT Codes CPT Codes: ANES UPR GI NDSC PX NOS - 86799 ([id number]) P2 - PATIENT W/MILD SYST DISEASE, QK - RATE MANAGER 2-4 CNCRNT ANES PROC, QX - SCIENTIST/ENGINEER SVC W/ MD MED DIRECTION
--- NOTE | 2025-01-18 10:55 | PM.EN ---
Chart Event Note Time Seen by Provider: 10:55 Date Seen: 01/18/25 Chart Event Note: Patient underwent an upper endoscopy. Evidence of large crater duodenal ulcer within the duodenal bulb, as well as several superficial ulcerations. No evidence of active bleeding. Random stomach biopsies obtained to test for h. pylori. Recommend patient continue on his dose PPI and start course of H. pylori treatment while awaiting pathology results. Will also need a repeat upper endoscopy in 3-4 months after completion of her treatment. No surgery recommended at this time.
--- NOTE | 2025-01-18 10:57 | P.ANES_ITS ---
Anesthesia Charges Start Date/Time Anesthesia Start Date: 01/18/25 Anesthesia Start Time: 10:35 Stop Date/Time Anesthesia Stop Date: 01/18/25 Anesthesia Stop Time: 10:53 Coding CPT Codes CPT Codes: ANES UPR GI NDSC PX NOS - 68755 ([id number]) P2 - PATIENT W/MILD SYST DISEASE, QK - ELECTROMYOGRAPHIC TECHNICIAN 2-4 CNCRNT ANES PROC, QX - AVIONICS MECHANIC SVC W/ MD MED DIRECTION
--- NOTE | 2025-01-18 10:57 | W.ANESCHARGE ---
Anesthesia Charges Start Date/Time Anesthesia Start Date: 01/18/25 Anesthesia Start Time: 10:35 Stop Date/Time Anesthesia Stop Date: 01/18/25 Anesthesia Stop Time: 10:53 Coding CPT Codes CPT Codes: ANES UPR GI NDSC PX NOS - 06458 ([id number]) P2 - PATIENT W/MILD SYST DISEASE, QK - SUPERVISOR NUT PROCESSING 2-4 CNCRNT ANES PROC, QX - CONSULTING SERVICES MANAGER SVC W/ MD MED DIRECTION
[2025-01-18 11:00] VITALS: BP 113/75; PULSE 62; RESP 18; TEMP 36.4; O2SAT 96
[2025-01-18] MEDS: CALCIUM CARBONATE 500 MG CHEW PO (11:54)
--- NOTE | 2025-01-18 12:31 | PM.DS1 ---
DS: Providers Provider Date Seen: 01/18/25 Primary care physician: Theresa Zelaya MD Consults: General Surgery Attending Physician on discharge: Mary Thomas MD Date of Discharge: 01/18/25 DS: Diagnosis Discharge Diagnosis (1) Epigastric abdominal pain: Status: Acute Problem details: - ddx: biliary colic, PUD - EGD performed on 01/18 revealed duodenal ulcer - treating with PPI, abx for H Pylori while awaiting pathology results from EGD biopsies DS: Summary Hospital Course Hospital Course: [place] was admitted to the hospital 01/18 for epigastric abdominal pain. Known history of gallstones, concern for acute cholecystitis based on symptoms. Labs and imaging reassuring. Re-evaluated by Dr. Walls of General Surgery on 01/18, proceeded with EGD prior to cholecystectomy, duodenal ulcer identified. Will treat with PPI, empiric H Pylori treatment while awaiting biopsy results. Patient appropriate for d/c on 01/18 with close PCP f/u. Needs repeat EGD in 3-4 months. Status at Discharge Functional status at discharge: independent ambulation Overall status at discharge: patient is progressing back to baseline Time Spent with Patient Time attestation: Total time spent providing and/or coordinating discharge services: Exam Narrative: Exam Narrative: GEN: Alert and oriented HEENT: EOMIs bilaterally, no scleral icterus CV: RRR, No concerning murmurs R: LCTA bilaterally without concerning wheezing Ab: Soft, no rebound ttp, no distention, negative Mathew's sign Ext: wwp, no concerning edema Skin: No concerning skin lesions or rashes on exposed skin Neuro: Nonfocal Psych: Appropriate Const: Vital Signs, click to edit/add: Vital Signs - 24 hr 01/17/25 21:46 01/17/25 23:45 01/18/25 00:35 Temperature 98.4 F 98.4 F Pulse Rate [Left P ulse Oximeter] Pulse Rate [Right Pulse Oximeter] 68 74 Respiratory Rate 18 18 Blood Pressure [Ri ght Arm] Blood Pressure [Ri ght Upper Arm] 128/82 124/78 Pulse Oximetry 99 99 99 Oxygen Delivery Me thod Room Air Room Air 01/18/25 01:09 01/18/25 01:10 01/18/25 07:00 Temperature 98.4 F 97.1 F L Pulse Rate [Left P ulse Oximeter] 54 L Pulse Rate [Right Pulse Oximeter] 74 Respiratory Rate 18 16 Blood Pressure [Ri ght Arm] 122/83 Blood Pressure [Ri ght Upper Arm] 124/78 Pulse Oximetry 96 97 Oxygen Delivery Me thod Room Air 01/18/25 07:00 01/18/25 07:45 01/18/25 11:00 Temperature 97.6 F 97.6 F Pulse Rate [Left P ulse Oximeter] 64 64 62 Pulse Rate [Right Pulse Oximeter] Respiratory Rate 18 18 18 Blood Pressure [Ri ght Arm] 110/71 113/75 Blood Pressure [Ri ght Upper Arm] Pulse Oximetry 97 96 Oxygen Delivery Me thod Room Air Room Air DS: Data Data Completed and Pending Labs on day of discharge: Labs from last 24 hours 01/18/25 01/17/25 05:50 21:57 WBC 7.03 RBC 4.94 Hgb 14.7 Hct 44.1 MCV 89 MCH 30 MCHC 33 RDW Coeff of Yesy 12.0 Plt Count 231 Neut % (Auto) 61.5 Lymph % (Auto) 27.9 Sandoval % (Auto) 7.7 Eos % (Auto) 2.1 Baso % (Auto) 0.7 Neut # (Auto) 4.32 Lymph # (Auto) 1.96 Sandoval # (Auto) 0.50 Eos # (Auto) 0.15 Baso # (Auto) 0.05 Abs Immat Gran (auto) 0.01 Imm/Tot Granulo (auto) 0.1 D-Dimer Quant (PE/DVT) < 0.27 Sodium 137 Potassium 3.7 Chloride 103 Carbon Dioxide 27 Anion Gap 7 BUN 12 Creatinine 0.8 Estimated Creat Clear 71.71 Estimated GFR 94 Glucose 122 H Lactate 0.8 Calcium 10.8 H Total Bilirubin 0.4 AST 25 ALT 19 Alkaline Phosphatase 95 Troponin I < 0.01 Total Protein 7.2 Albumin 4.3 Lipase 86 Urine HCG, Qual Negative Discharge Plan Discharge Disposition: Home w/ Parent or Adult Discharging Surgeon: Yessica Walls Follow-Up Appointment: repeat EGD 3-4 months Prescriptions: New omeprazole 40 mg capsule,delayed release(DR/EC) 40 mg PO BID Qty: 60 2RF bismuth subsalicylate 525 mg/15 mL suspension 525 mg PO QID 14 Days Qty: 840 0RF tetracycline 500 mg capsule 500 mg PO QID 14 Days Qty: 56 0RF metronidazole 500 mg tablet 500 mg PO QID 14 Days Qty: 56 0RF Activity Level: Activity as Tolerated and Other Discharge Diet: Other Diet Detail: bland for a few days Patient Instructions: Tetracycline (By mouth), Metronidazole (By mouth), Omeprazole (By mouth), Bismuth Subsalicylate (By mouth), Peptic Ulcer (DC) Additional Instructions: You were found to have an ULCER during EGD today. Because some of these are caused by bacteria, we're sending you home on a 2 week course of medication to help clear this up (take with food and a bland diet). One of the medications can make you more sun sensitive, so be liberal with sunscreen and shade. You'll need a repeat Endoscopy in 3-4 months to confirm resolution of the ulcer. Follow-up: Theresa Zelaya MD [Primary Care Provider, Family Practice] - 01/28/25 1:45 pm Referral Note: 7-10 days for hospital f/u Discharge Orders: Discharge Order (Routine); Ordered 01/18/25 Ordered By: Mary Thomas
--- NOTE | 2025-01-18 13:29 | PC.NURSE ---
Discharge: Patient pleasant and cooperative, A&O. VSS, afebrile. Patient reports pain in upper abdomen, managed with PRN medication, see MAR. Independent in room. Tolerated regular diet. IV removed with tip intact. Discharge instructions provided, all questions answered. Discharged to home at 1322
== END 2025-01-18 13:22 | disposition home or self-care (01) ==
LOC: ED 23:44 → SS 01-18 01:01 → MEDSURG 01-18 08:21 → ED 01-21 08:57 → MEDSURG 01-21 08:58
PROVIDERS: Surgery; Admitting Provider Internal Medicine; Emergency Provider Internal Medicine; PCP Family Medicine; Visit Provider Internal Medicine
DX: K26.9 Duodenal ulcer, unspecified as acute or chronic, without hemorrhage or perforation (principal); R10.13 Epigastric pain; K80.20 Calculus of gallbladder without cholecystitis without obstruction; G43.109 Migraine with aura, not intractable, without status migrainosus; F41.9 Anxiety disorder, unspecified; F32.A Depression, unspecified
CPT/HCPCS: 00731; 36415; 43239; 76705; 80053; 81025; 83605; 83690; 84484; 85025; 85379; 93005; 94761; 99283; 99285; A9270; G0378; J2250; J2470; J2704; J3010; J7030

== ENCOUNTER 2025-05-06 09:21 | Outpatient (CLI) | payer OTHER, SELFPAY ==
--- NOTE | 2025-05-06 10:25 | P.ANES_ITS ---
Anesthesia Charges Start Date/Time Anesthesia Start Date: 05/06/25 Anesthesia Start Time: 10:10 Stop Date/Time Anesthesia Stop Date: 05/06/25 Anesthesia Stop Time: 10:23 Coding CPT Codes CPT Codes: ANES UPR GI NDSC PX NOS - 72833 ([id number]) P3 - PATIENT W/SEVERE SYS DISEASE, QX - FINANCIAL SERVICES INTERN SVC W/ MD MED DIRECTION, QK - SHEEP OR CALF GRADER 2-4 CNCRNT ANES PROC
--- NOTE | 2025-05-06 10:25 | W.ANESCHARGE ---
Anesthesia Charges Start Date/Time Anesthesia Start Date: 05/06/25 Anesthesia Start Time: 10:10 Stop Date/Time Anesthesia Stop Date: 05/06/25 Anesthesia Stop Time: 10:23 Coding CPT Codes CPT Codes: ANES UPR GI NDSC PX NOS - 49171 ([id number]) P3 - PATIENT W/SEVERE SYS DISEASE, QX - SOCIAL SERVICE WORKER SVC W/ MD MED DIRECTION, QK - QUALITY ASSURANCE TESTER 2-4 CNCRNT ANES PROC
--- NOTE | 2025-05-06 11:04 | P.ANES_ITS ---
Anesthesia Charges Start Date/Time Anesthesia Start Date: 05/06/25 Anesthesia Start Time: 10:10 Stop Date/Time Anesthesia Stop Date: 05/06/25 Anesthesia Stop Time: 10:23 Coding CPT Codes CPT Codes: ANES UPR GI NDSC PX NOS - 65243 ([id number]) QK - REHABILITATION NURSE 2-4 CNCRNT ANES PROC, QX - SERVICES MANAGER SVC W/ MD MED DIRECTION, P3 - PATIENT W/SEVERE SYS DISEASE
--- NOTE | 2025-05-06 11:04 | W.ANESCHARGE ---
Anesthesia Charges Start Date/Time Anesthesia Start Date: 05/06/25 Anesthesia Start Time: 10:10 Stop Date/Time Anesthesia Stop Date: 05/06/25 Anesthesia Stop Time: 10:23 Coding CPT Codes CPT Codes: ANES UPR GI NDSC PX NOS - 00520 ([id number]) QK - BAG END SEWER 2-4 CNCRNT ANES PROC, QX - ORE FEEDER SVC W/ MD MED DIRECTION, P3 - PATIENT W/SEVERE SYS DISEASE
== END 2025-05-06 09:22 | disposition home or self-care (01) ==
LOC: OP CLINIC 09:22
PROVIDERS: PCP Family Medicine; Visit Provider Internal Medicine
DX: R10.13 Epigastric pain (principal)
CPT/HCPCS: 00731; 43235; J2704; J3010

== ENCOUNTER 2025-06-06 12:43 | Outpatient (CLI) | payer OTHER, SELFPAY ==
--- NOTE | 2025-06-06 13:00 | CRLHL7_ITS ---
For Patients: As a result of the Cures Act, medical imaging exams and procedure reports are released immediately into your electronic medical record. You may view this report before your referring provider. If you have questions, please contact your health care provider. INDICATION: BILATERAL SCREENING MAMMOGRAM, ASYMPTOMATIC 45 Y/O FEMALE COMPARISON: 12/09/2023 TECHNIQUE: Digital mammogram in CC and MLO projections including computer-aided detection (CAD) and tomosynthesis. BREAST COMPOSITION: The breasts are heterogeneously dense, which may obscure small masses. FINDINGS: No suspicious findings. ASSESSMENT: BI-RADS 1 Negative RECOMMENDATION: Annual screening mammogram. A lay language report of this examination will be provided to the patient. Dictated by: Helio Wells MD @ 06/07/2025 10:09:00 (Electronically Signed)
== END 2025-06-06 12:44 | disposition home or self-care (01) ==
LOC: MAMMO 12:43
PROVIDERS: PCP Family Medicine; Visit Provider Family Medicine
DX: Z12.31 Encounter for screening mammogram for malignant neoplasm of breast (principal); R92.333 Mammographic heterogeneous density, bilateral breasts
CPT/HCPCS: 77063; 77067